=== PATIENT | female | born 1950 | race Caucasian/White ===

== ENCOUNTER 2021-09-07 10:07 | Inpatient (IN) | payer MEDICARE, SELFPAY ==
[2021-09-07] VITALS (39 sets, daily range): BP systolic 81–122; BP diastolic 47–83; PULSE 65–140; RESP 13–27; TEMP 36.3–36.9; O2SAT 92–99; BMI 26.3
--- NOTE | 2021-09-07 10:14 | DI.RAD.S_ITS ---
I wiPROCEDURE: XR CHEST 1V INDICATIONS: Chest pain TECHNIQUE: One view of the chest was acquired. COMPARISON: None. FINDINGS: Surgical changes and devices: None. Lungs and pleura: Lungs are clear. No pleural effusions or pneumothorax. Mediastinum: Mediastinal contours appear normal. Heart size is normal. Bones and chest wall: No suspicious bony lesions. Overlying soft tissues appear unremarkable. IMPRESSION: No acute cardiopulmonary process demonstrated radiographically. Dictated by: Maycol Jarrell M.D. on 09/07/2021 at 10:42 Approved by: Maycol Jarrell M.D. on 09/07/2021 at 10:43
--- NOTE | 2021-09-07 10:18 | ED.ARRPALP ---
HPI - Arrhythmia/Palpitations General Chief Complaint: Arrhythmia/Palpitations Stated Complaint: Heart racing- Congestive hf- sent by [facility] Time Seen by Provider: 09/07/21 10:16 Source: patient Mode of arrival: Ambulatory Limitations: no limitations History of Present Illness HPI narrative: Patient is a 71-year-old female who was sent from the walk-in clinic for evaluation of a fast heart rate. Patient does have a history of heart failure. States that her last echocardiogram was done within the past couple months. She states the ejection fraction was less than 40%. She is on 2 different medications for high blood pressure and also her heart failure. She takes her blood pressure on a daily basis every morning. She states that it normally runs in the 110s to 120s range over 80s to 90s. Her heart rate is normally in the 40s and 50s. She did take her normal medications last evening. She also took them this morning is normal. When she took her blood pressure this morning it was noted that her heart rate was in the 120s. She has no symptoms. No chest pain. No shortness of breath. No nausea vomiting. No lightheadedness. No headache. She is not on blood thinners. She is visiting the area taking care of a [id number]. Because of the elevated heart rate she went to the walk-in clinic and was sent to the emergency department for evaluation. Patient also states she has a history of left bundle-branch block Related Data Home Medications Medication Instructions Recorded Confirmed alendronate 70 mg tablet 70 mg PO QWEEK 09/07/21 09/07/21 aspirin 81 mg tablet 81 mg PO DAILY 09/07/21 09/07/21 atorvastatin 10 mg tablet 10 mg PO BEDTIME 09/07/21 09/07/21 carvedilol 12.5 mg tablet 12.5 mg PO BID 09/07/21 09/07/21 sacubitril 97 mg-valsartan 103 mg 1 tab PO BID 09/07/21 09/07/21 tablet (Entresto) Allergies Allergy/AdvReac Type Severity Reaction Status Date / Time No Known Drug Allergies Allergy Verified 09/07/21 10:14 Review of Systems Constitutional Constitutional: Reports as per HPI and Reports system reviewed and no additional complaints, except as documented Cardiovascular Cardiovascular: Reports as per HPI, Reports system reviewed and no additional complaints, except as documented, Denies chest pain, Denies syncope, Reports rapid heart rate, Denies irregular heart rhythm, Denies leg edema, Denies lightheadedness, Denies palpitations and Denies dyspnea Respiratory Respiratory: Denies cough and Denies dyspnea Gastrointestinal Gastrointestinal: Denies abdominal pain, Denies nausea and Denies vomiting Musculoskeletal Musculoskeletal: Reports system reviewed and no additional complaints, except as documented Integumentary/Breasts Skin/Breast: Reports system reviewed and no additional complaints, except as documented Neurologic Neurologic: Denies syncope Endocrine Endocrine: Denies palpitations Hematologic/Lymphatic On Anticoagulants: No Patient History Medical History Congestive heart failure Family History (Updated 09/07/21 @ 16:57 by Lily Gutierrez MD) Brother Heart transplant failure Mother FH: heart attack Social History household members: spouse and family Smoking Status: Never smoker alcohol intake: current Smoking Status: Never smoker alcohol intake frequency: 0-2 drinks per day Substance Use Type: does not use Exam Initial Vital Signs Initial Vital Signs: Vital Signs Pulse Rate 126 H 09/07/21 10:12 Respiratory Rate 21 09/07/21 10:12 Blood Pressure 122/83 09/07/21 10:12 Pulse Oximetry 92 09/07/21 10:12 Const General: cooperative and healthy appearing [facility] Head: normal to inspection and normocephalic Eyes General: appearance normal, both eyes and all related structures Neck Neck: normal visual inspection Chest Chest: normal inspection of the chest and No crepitus Resp Effort & Inspection: normal respiratory effort Auscultation: clear to auscultation bilaterally Cardio Rate: tachycardic Rhythm: regular rhythm GI Inspection: normal to inspection Skin General: no rashes or lesions noted Neuro General: patient alert, patient awake, patient oriented x3 and moves all extremities Extrem General: normal to inspection and capillary refill normal Psych Appearance: grossly normal Course Orders Ordered: ED Orders 09/07/21 10:11 EKG-12 Lead Stat 09/07/21 10:14 XR chest 1V Stat 09/07/21 10:15 Complete Blood Count AUTO DIFF Stat Comprehensive Metabolic Panel Stat Lipase Stat Magnesium Stat NT-proBNP (BNP-Adult 18+) Stat Partial Thromboplastin Time Stat Prothrombin Time INR Stat Troponin & CK Cardiac Panel Stat Acetaminophen (Acetaminophen 325 Mg Tablet) 650 mg PO Q6HR PRN PRN Reason: Fever/Mild Pain (1-3) Apixaban (Apixaban 5 Mg Tablet) 5 mg PO BID [place] Atorvastatin Calcium (Atorvastatin 20 Mg Tablet) 10 mg PO BEDTIME [place] Bisacodyl (Bisacodyl 10 Mg Supp) 10 mg [place] DAILY PRN PRN Reason: Constipation Docusate Sodium (Docusate 100 Mg Capsule) 100 mg PO BID [facility] Hydromorphone HCl (Hydromorphone 0.5 Mg Inj) 0.5 mg IV Q6H PRN PRN Reason: Pain, Moderate (4-6) Metoprolol Tartrate (Metoprolol Ir 50 Mg Tablet) 50 mg PO Q6H [facility] Last Admin: 09/07/21 14:55 Dose: 50 mg Documented by: BISHOP Naloxone HCl (Naloxone 0.4 Mg/Ml Vial) 0.2 mg IV Q2MIN PRN PRN Reason: Opiate Reversal Non-Formulary Medication (Non-Formulary Medication) 0 each PO PRN PRN PRN Reason: HOME MEDICATION STORAGE Ondansetron HCl (Ondansetron 4 Mg/2 Ml Inj) 4 mg IV Q8HR PRN PRN Reason: Nausea And Vomiting Discontinued Medications Diltiazem HCl (Diltiazem 5 Mg/Ml Sdv) 10 mg IV NOW ONE Stop: 09/07/21 16:31 Last Admin: 09/07/21 16:42 Dose: 10 mg Documented by: MEMO Sodium Chloride (Normal Saline 0.9%) 1,000 mls @ 500 mls/hr IV BOLUS ONE Stop: 09/07/21 13:45 Last Infusion: 09/07/21 14:48 Dose: 0 mls/hr Documented by: Infusion: 09/07/21 11:52 Dose: 0 mls/hr Documented by: Admin: 09/07/21 11:50 Dose: 500 mls/hr Documented by: LUDY Metoprolol Tartrate (Metoprolol Tartrate 5 Mg/5 Ml Inj) 5 mg IV NOW ONE Stop: 09/07/21 11:06 Last Admin: 09/07/21 11:12 Dose: 5 mg Documented by: LOUISE Vital Signs Vital signs: Vital Signs - 8 hr 09/07/21 10:12 09/07/21 10:15 09/07/21 10:30 Temperature 98.4 F Pulse Rate 126 H 126 H 127 H Respiratory Rate 21 21 17 Blood Pressure 122/83 122/83 98/68 Pulse Oximetry 92 98 97 09/07/21 11:00 09/07/21 11:13 09/07/21 11:25 Temperature Pulse Rate 135 H 99 H 123 H Respiratory Rate 20 20 15 Blood Pressure 109/74 109/75 93/67 Pulse Oximetry 97 96 98 09/07/21 11:30 09/07/21 11:52 09/07/21 12:00 Temperature Pulse Rate 123 H 124 H 125 H Respiratory Rate 17 18 18 Blood Pressure 86/61 L 104/72 111/70 Pulse Oximetry 98 97 98 09/07/21 12:15 Temperature Pulse Rate 125 H Respiratory Rate 18 Blood Pressure 95/56 L Pulse Oximetry 97 MDM - Arrhythmia/Palpitations Lab Data Attestation: I reviewed the patient's lab results. Result diagrams: 09/07/21 10:15 09/07/21 10:15 Labs: Lab Results 09/07/21 09/07/21 09/07/21 Range/Units 10:15 10:15 10:15 WBC 6.3 (4.5-11.0) X10^3/uL RBC 4.93 (4.0-5.2) X10^6/uL Hgb 15.5 (12.0-16.0) g/dL Hct 46.9 H (36-46) % MCV 95.2 (80-100) fL MCH 31.4 (26-34) PG MCHC 32.9 (30-36) % RDW 13.8 (11.6-14.8) % Plt Count 185 (150-400) X10^3/uL Neut % (Auto) 64.1 (50-75) % Lymph % (Auto) 24.8 L (25-40) % [place] % (Auto) 9.2 (3-14) % Eos % (Auto) 1.2 L (2-4) % Baso % (Auto) 0.7 (0-2) % Neut # (Auto) 4000 (2189-3375) /uL Lymph # (Auto) 1600 (3364-9995) /uL [place] # (Auto) 600 (0-900) /uL Eos # (Auto) 100 (0-450) /uL Baso # (Auto) 0 (0-100) /uL PT 11.6 (10.1-12.7) SECONDS INR 1.0 (0.9-1.3) APTT 32 (26.4-36.2) SECONDS Sodium 140 (137-145) mmol/L Potassium 4.4 (3.4-5.1) mmol/L Chloride 105 (98-107) mmol/L Carbon Dioxide 27 (22-32) mmol/L BUN 18 H (7-17) mg/dL Creatinine 0.59 (0.52-1.04) mg/dL Estimated GFR > 60.0 (>60) mL/min BUN/Creatinine Ratio 30.5 H (6-22) Glucose 116 H (80-110) mg/dL Calcium 9.4 (8.4-10.2) mg/dL Magnesium 1.9 (1.6-2.3) mg/dL Total Bilirubin 0.9 (0.2-1.3) mg/dL AST 28 (14-36) IU/L ALT 24 (<35) IU/L Alkaline Phosphatase 72 (38-126) U/L Total Creatine Kinase 64 (30-135) U/L CK-MB (CK-2) TNP CK-MB (CK-2) Rel Index TNP Troponin I 0.032 (0.01-0.034) ng/mL NT-Pro-B Natriuret Pep 1110 H (<125) pg/mL Total Protein 7.2 (6.3-8.2) g/dL Albumin 4.7 (3.5-5.0) g/dL Globulin 2.5 (1.7-4.1) g/dL Albumin/Globulin Ratio 1.9 (1.0-2.8) Lipase 91 (23-300) U/L 09/07/ Range/Units 10:15 WBC (4.5-11.0) X10^3/uL RBC (4.0-5.2) X10^6/uL Hgb (12.0-16.0) g/dL Hct (36-46) % MCV (80-100) fL MCH (26-34) PG MCHC (30-36) % RDW (11.6-14.8) % Plt Count (150-400) X10^3/uL Neut % (Auto) (50-75) % Lymph % (Auto) (25-40) % [place] % (Auto) (3-14) % Eos % (Auto) (2-4) % Baso % (Auto) (0-2) % Neut # (Auto) (2481-3605) /uL Lymph # (Auto) (7942-5225) /uL [place] # (Auto) (0-900) /uL Eos # (Auto) (0-450) /uL Baso # (Auto) (0-100) /uL PT (10.1-12.7) SECONDS INR (0.9-1.3) APTT (26.4-36.2) SECONDS Sodium (137-145) mmol/L Potassium (3.4-5.1) mmol/L Chloride (98-107) mmol/L Carbon Dioxide (22-32) mmol/L BUN (7-17) mg/dL Creatinine (0.52-1.04) mg/dL Estimated GFR (>60) mL/min BUN/Creatinine Ratio (6-22) Glucose (80-110) mg/dL Calcium (8.4-10.2) mg/dL Magnesium (1.6-2.3) mg/dL Total Bilirubin (0.2-1.3) mg/dL AST (14-36) IU/L ALT (<35) IU/L Alkaline Phosphatase (38-126) U/L Total Creatine Kinase (30-135) U/L CK-MB (CK-2) CK-MB (CK-2) Rel Index Troponin I (0.01-0.034) ng/mL NT-Pro-B Natriuret Pep Cancelled (<125) pg/mL Total Protein (6.3-8.2) g/dL Albumin (3.5-5.0) g/dL Globulin (1.7-4.1) g/dL Albumin/Globulin Ratio (1.0-2.8) Lipase (23-300) U/L Imaging Data Chest x-ray: Radiologist's Impresson: [address] [id number] ReportSigned Patient: Sonja Auguste JMR#: [id number]: 8Acct:[id number]/Sex: 71 / FDate of Service: 09/07/21Loc: EDAccession Number: [id number] Procedure: XR chest 1V Ordering Provider: Srinivas Hunt D.O., I wiPROCEDURE: XR CHEST 1V INDICATIONS: Chest pain TECHNIQUE: One view of the chest was acquired. COMPARISON: None. FINDINGS: Surgical changes and devices: None. Lungs and pleura: Lungs are clear. No pleural effusions or pneumothorax. Mediastinum: Mediastinal contours appear normal. Heart size is normal. Bones and chest wall: No suspicious bony lesions. Overlying soft tissues appear unremarkable. IMPRESSION: No acute cardiopulmonary process demonstrated radiographically. Dictated by: Maycol Jarrell M.D. on 09/07/2021 at 10:42 Approved by: Maycol Jarrell M.D. on 09/07/2021 at 10:43 ECG Data Attestation: I personally reviewed and interpreted this ECG as follows: Interpretation: Sinus rhythm Ventricular rate 122 Left axis deviation LVH QRS 1-0 milliseconds Normal QTC No ST T wave change Repeat EKG Sinus tachycardia Ventricular rate 123 Left axis deviation Nonspecific ST T wave changes MDM Narrative Medical decision making narrative: Patient is asymptomatic. No chest pain. No palpitations. Does have a history of heart failure. No prior notes available for review however she states that she has had a diagnosis of a left bundle branch block in the past and also states that her ejection fraction on a echocardiogram prior to her traveling to the local area was less than 40%. She also mentioned that her puddler helper thought that she potentially will need a ?defibrillator ?in the future although she states she has never been diagnosed with any abnormal arrhythmias. I did discuss the case with Dr. Bunn on-call for cardiology. He recommended giving the patient adenosine to see if we can see the underlying rhythm. I initially tried to speed up the EKG in we were unfortunately unable to distinguish whether not this was a sinus rhythm verses atrial flutter. Patient was given 6 mg of adenosine. We were able to then see that her underlying rhythm was atrial flutter. Per Cardiology recommendations we will hold her carvedilol. Start her on metoprolol. Will avoid Cardizem. I did discuss this all with the patient. Will admit for further evaluation and treatment. Discussed the case with Dr. bowel with internal medicine. Will admit for further evaluation treatment. Discharge Plan Departure Patient Disposition: Admitted As Inpatient Clinical Impression: Atrial flutter Admit Date/Time: 09/07/21 12:20 Admit Provider: Lily Gutierrez
[2021-09-07 10:21] LABS: Add Manual Diff / Slide Review NO; Basophils Absolute Auto 0 /uL (0-100); Basophils Percent Auto 0.7 % (0-2); Eosinophils Absolute Auto 100 /uL (0-450); Eosinophils Percent Auto 1.2 % (2-4); Hematocrit 46.9 % (36-46); Hemoglobin 15.5 g/dL (12.0-16.0); Lymphocytes Absolute Auto 1600 /uL (1100-4500); Lymphocytes Percent Auto 24.8 % (25-40); Mean Corpuscular HGB Conc 32.9 % (30-36); Mean Corpuscular Hemoglobin 31.4 PG (26-34); Mean Corpuscular Volume 95.2 fL (80-100); Monocytes Absolute Auto 600 /uL (0-900); Monocytes Percent Auto 9.2 % (3-14); Neutrophils Absolute Auto 4000 /uL (1500-7000); Neutrophils Percent Auto 64.1 % (50-75); Platelet Count 185 X10^3/uL (150-400); Red Blood Cell Count 4.93 X10^6/uL (4.0-5.2); Red Cell Distribution Width 13.8 % (11.6-14.8); White Blood Cell Count 6.3 X10^3/uL (4.5-11.0)
--- NOTE | 2021-09-07 10:22 | PC.NURSE ---
Pt reports every morning upon waking she takes her vitals. H/O CHF and takes Entresto and Carvedilol daily. States at midnight last night she woke in a sweat. This morning her BP was WNL however HR was 127. States she is usually bradycardic. Asymptomatic. Denies CP or SOB at this time and 99% RA. EKG obtained and IV access obtained and labs sent.
[2021-09-07 10:27] LABS: Prothrombin Time 11.6 SECONDS (10.1-12.7)
[2021-09-07 10:30] LABS: PTT Partial Thromboplastin Tim 32 SECONDS (26.4-36.2)
[2021-09-07 10:31] LABS: Alanine Aminotransferase 24 IU/L (<35); Albumin 4.7 g/dL (3.5-5.0); Albumin Globulin Ratio 1.9 (1.0-2.8); Alkaline Phosphatase 72 U/L (38-126); Aspartate Aminotransferase 28 IU/L (14-36); BUN Creatinine Ratio 30.5 (6-22); Bilirubin Total 0.9 mg/dL (0.2-1.3); Blood Urea Nitrogen 18 mg/dL (7-17); Calcium 9.4 mg/dL (8.4-10.2); Carbon Dioxide 27 mmol/L (22-32); Chloride 105 mmol/L (98-107); Creatine Kinase 64 U/L (30-135); Estimated Glomerular Filt Rate > 60.0 mL/min (>60); Globulin 2.5 g/dL (1.7-4.1); Glucose 116 mg/dL (80-110); HEMOLYSIS < 15 (0-50); Lipase 91 U/L (23-300); Magnesium 1.9 mg/dL (1.6-2.3); Potassium 4.4 mmol/L (3.4-5.1); Sodium 140 mmol/L (137-145); Total Protein 7.2 g/dL (6.3-8.2)
[2021-09-07 10:43] LABS: NT-proBNP (BNP-Adult 18+) 1110 pg/mL (<125); Troponin I 0.032 ng/mL (0.01-0.034)
[2021-09-07] MEDS: ADENOSINE 6 MG/2 ML VIAL IV (11:00)
[2021-09-07] MEDS: METOPROLOL TARTRATE 5 MG/5 ML INJ IV (11:12)
--- NOTE | 2021-09-07 11:16 | PC.NURSE ---
Pt attached to continuous EKG monitoring. Dr Hunt in room. Pt HR 128, regular narrow complex tach. Per Dr Tse, cardio--give 6mg adenosine to assess underlying rhythm. Given. Pt tolerated well. Underlying rhythm appears to be Aflutter. HR returned to 120's. BP 109/75. 5mg Metoprolol given IVP and will continue to assess. Pt continues to deny CP, SOB. OOB to BR with steady gait.
[2021-09-07] MEDS: SODIUM CHLORIDE 0.9% 1,000 ML 500 ML IV (11:50)
--- NOTE | 2021-09-07 13:26 | PC.NURSE ---
Pt monitor alarming. Pt with HR 145-50's appearing regular on monitor, irregular to palp. Pt asymptomatic and states she does not feel any different than she did on arrival. RT called for repeat EKG and Dr Hunt made aware of situation. No new orders at this time.
--- NOTE | 2021-09-07 13:28 | PC.NURSE ---
Report given to Gayla PUGA
[2021-09-07 14:37] LABS: COVID19 - ADMIT (NP swab/PCR) Negative (Negative)
--- NOTE | 2021-09-07 14:41 | DI.ECHO.S_ITS ---
[facility]---------+ [facility] +---------+ : : [address] : [address] : : : : [id number] : : : : Phone: [phone] Echocardiogram Report + + :Name: DINORAH ROSS Study Date: 09/08/2021 Height: 62 in : :[facility] ReadingLocation: Weight: 142 lb: : Gender: Female BSA: 1.7 m2 : :: 1950 Age: 71 yrs BP: 89/60 mmHg: :Reason For Study: New onset atrial flutter : : Performed By: CURTIS GATES : :Referring: MAIRA BLANK : + + Interpretation Summary The left ventricle is mildly dilated. The ejection fraction is estimated to be 20-25%. There is severe global hypokinesis of the left ventricle. The left atrium is moderately dilated. The mitral regurgitant jet is eccentrically directed. There is mild to moderate mitral regurgitation. There is mild tricuspid regurgitation. The right ventricular systolic pressure is estimated to be at least 17 mmHg based on an estimated right atrial pressure of 3 mm Hg. Procedure: A two-dimensional transthoracic echocardiogram with color flow and Doppler was performed. The study quality was technically adequate. There is no prior echocardiogram noted for this patient. The patient was in atrial flutter with heart rates between 71 - 125 bpm during the exam. Left Ventricle: The left ventricle is mildly dilated. There is normal left ventricular wall thickness. The ejection fraction is estimated to be 20-25%. There is severe global hypokinesis of the left ventricle. Diastolic function could not be accurately assessed due to unobtainable data. Right Ventricle: The right ventricle is normal size. Right ventricular systolic function is mild to moderately reduced. Atria: The left atrium is moderately dilated. The right atrium is mildly dilated. There is no Doppler evidence for an interatrial shunt. Mitral Valve: There is a flat closure plane of the the mitral valve leaflets. The mitral valve leaflets appear borderline thickened, but open well. The mitral regurgitant jet is eccentrically directed. There is mild to moderate mitral regurgitation. The mitral regurgitant jet is posteriorly directed, which is consistent with anterior leaflet pathology. Aortic Valve: The aortic valve is trileaflet. The aortic valve opens well. No aortic regurgitation is present. Tricuspid Valve: The tricuspid valve is normal. There is mild tricuspid regurgitation. The right ventricular systolic pressure is estimated to be at least 17 mmHg based on an estimated right atrial pressure of 3 mm Hg. Pulmonic Valve: The pulmonic valve leaflets are thin and pliable; valve motion is normal. There is a trace or physiologic amount of pulmonic regurgitation. Great Vessels: The aortic root is normal size. The ascending aorta is normal in size. The aortic arch is normal in size. The IVC is of normal diameter and collapses greater than 50% with a sniff. This suggests a low right atrial pressure of 3 mm Hg. Pericardium/ Pleura There is no pericardial effusion. There is an anterior echo-free space consistent with a fat pad. There is no pleural effusion. MMode/2D Measurements & Calculations LVIDd: 5.2 cm LVOT diam: 1.8 cm LVIDs: 4.9 cm Ao root diam: 2.4 cm FS: 5.2 % asc Aorta Diam: 2.8 cm IVSd: 0.74 cm Ao Arch Diam (Prox Trans): 3.0 cm LVPWd: 0.70 cm LV ortiz. diameter/BSA (cm/m^2): 3.2 LV sys. diameter/BSA (cm/m^2): 3.0 LA A2 area: 22.4 cm2 RA long axis: 4.4 cm LA A4 area: 22.3 cm2 RA area: 13.5 cm2 LA length (vol): 5.9 cm RA vol: 35.6 ml LA vol: 71.7 ml RA : 21.6 ml/m2 LA vol index: 43.4 ml/m2 RVD1 (basal): 3.1 cm TAPSE: 1.2 cm Doppler Measurements & Calculations Ao V2 max: 102.3 cm/sec LVOT Max Kamari: 66.6 cm/sec Ao V2 mean: 74.6 cm/sec LV V1 max P.8 mmHg Ao max P.2 mmHg LV V1 VTI: 11.3 cm Ao mean P.4 mmHg KEVIN(I,D): 1.7 cm2 Ao V2 VTI: 16.8 cm KEVIN(V,D): 1.6 cm2 sev ratio: 0.67 KEVIN indexed to BSA (cm^2/m^2): 1.0 MV E max kamari: 58.6 cm/sec TR max kamari: 185.0 cm/sec MV dec time: 0.12 sec TR max P.7 mmHg PA V2 max: 65.4 cm/sec PA V2 mean: 46.8 cm/sec PA mean P.94 mmHg SV(LVOT): 28.0 ml Reading Physician:09:37 AM
--- NOTE | 2021-09-07 14:41 | PC.NURSE ---
admisssion completed and pt remains anxious r/t elevated hr ( 125-138 ) afib/flutter but otherwise asymptomatic- room air spo2 96% - urianted prior to getting in bed, lungs clear and plan is for po metoprolol awaiting orders at present- oriented to room, call light and bed controls
[2021-09-07] MEDS: METOPROLOL IR 50 MG TABLET PO ×2 (14:55→20:14)
[2021-09-07] MEDS: dilTIAZem 5 MG/ML SDV 10 MG IV (16:42)
--- NOTE | 2021-09-07 16:54 | P.HP_ITS ---
History of Present Illness History of Present Illness Date Patient Seen: 09/07/21 Chief complaint: Heart racing- Congestive hf- sent by [facility] Narrative: The patient is a 71-year-old female with a history of chronic systolic heart failure with an ejection fraction of 25-30%, osteoporosis, and hyperlipidemia who was in her usual state of health until earlier today. The patient takes her blood pressure daily. She also takes her pulse as well. She has no history of tachyarrhythmias. When she took her pulse and blood pressure this morning she noted her heart rate was 120. As that persisted she presented to the emergency room for evaluation. Patient denies any associated chest pain. She had no shortness of breath. She denies any orthopnea. She has no lower extremity edema. In fact the patient's heart failure was diagnosed via echo as she was clinically asymptomatic. As her ejection fraction 25% scheduled to have a defibrillator placed in February of this year. Patient lives in [place]. She is here in [place] to assist with her [id number] as a result of her father in [place] passing away a few months ago. The patient takes carvedilol and Entresto for her heart failure. She did take her usual medication this morning. In the emergency department she was given 5 mg of IV metoprolol however her heart rate remained elevated. After consultation with Cardiology, Dr. Bunn was recommended that the patient be admitted to the hospital, switched from carvedilol to metoprolol and anticoagulated for her atrial flutter. In the emergency room she was given 6 mg of adenosine. This clearly identified flutter waves. As the patient remains tachycardic she is admitted to the hospital for inpatient treatment of atrial flutter. Patient History Medical History Congestive heart failure Family & Social History Family History (Updated 09/07/21 @ 16:57 by Lily Gutierrez MD) Brother Heart transplant failure Mother FH: heart attack Social History: household members spouse,family Prior Living Arrangements House Safety & Behavioral: Feels Safe in Current Yes Environment Been Physically Hurt or No Threatened By a Person Suicidal Ideation Description None Suicide Plan Description No Plan Tobacco & Substance use: Smoking Status Never smoker alcohol intake current alcohol intake frequency 0-2 drinks per day Substance Use Type does not use Meds Home Medications and Allergies Home Medications Medication Instructions Recorded Confirmed Type alendronate 70 mg tablet 70 mg PO QWEEK 09/07/21 09/07/21 History aspirin 81 mg tablet 81 mg PO DAILY 09/07/21 09/07/21 History atorvastatin 10 mg tablet 10 mg PO BEDTIME 09/07/21 09/07/21 History carvedilol 12.5 mg tablet 12.5 mg PO BID 09/07/21 09/07/21 History sacubitril 97 mg-valsartan 103 mg 1 tab PO BID 09/07/21 09/07/21 History tablet (Entresto) Allergies Allergy/AdvReac Type Severity Reaction Status Date / Time No Known Drug Allergies Allergy Verified 09/07/21 10:14 Review of Systems Review of Systems Narrative: Ten point review of systems is negative Except as above Exam Vital Signs (past 8 hours): - 09/07/21 10:12 09/07/21 10:15 09/07/21 10:30 Temperature 98.4 F Pulse Rate 126 H 126 H 127 H Respiratory Rate 21 21 17 Blood Pressure 122/83 122/83 98/68 Pulse Oximetry 92 98 97 09/07/21 11:00 09/07/21 11:13 09/07/21 11:25 Temperature Pulse Rate 135 H 99 H 123 H Respiratory Rate 20 20 15 Blood Pressure 109/74 109/75 93/67 Pulse Oximetry 97 96 98 09/07/21 11:30 09/07/21 11:52 09/07/21 12:00 Temperature Pulse Rate 123 H 124 H 125 H Respiratory Rate 17 18 18 Blood Pressure 86/61 L 104/72 111/70 Pulse Oximetry 98 97 98 09/07/21 12:15 09/07/21 12:30 09/07/21 12:45 Temperature Pulse Rate 125 H 126 H 128 H Respiratory Rate 18 16 16 Blood Pressure 95/56 L 108/66 93/66 Pulse Oximetry 97 98 96 09/07/21 13:02 09/07/21 13:03 09/07/21 13:05 Temperature Pulse Rate 128 H 128 H 129 H Respiratory Rate 20 23 14 Blood Pressure 95/60 Pulse Oximetry 97 97 98 09/07/21 13:10 09/07/21 13:15 09/07/21 13:20 Temperature Pulse Rate 128 H 129 H 140 H Respiratory Rate 16 18 17 Blood Pressure 100/63 Pulse Oximetry 96 97 97 09/07/21 13:25 09/07/21 13:40 09/07/21 14:07 Temperature 97.4 F L 97.4 F L Pulse Rate 122 H 125 H Respiratory Rate 25 H 23 23 Blood Pressure 115/65 115/65 Pulse Oximetry 97 99 99 09/07/21 16:42 Temperature Pulse Rate 133 H Respiratory Rate Blood Pressure Pulse Oximetry Oxygen Delivery Method Room Air Oxygen Flow Rate 0 Narrative Exam Narrative: Pleasant female lying in bed in no obvious distress [facility] Other: HEENT: Normocephalic atraumatic, sclerae anicteric, extraocular muscles are intact, oropharynx is clear, neck is supple without adenopathy or thyromegaly Resp Other: Lungs: Clear to auscultation Cardio Other: Cardiac exam: Tachycardic, regular rate and rhythm normal S1-S2 GI Other: Abdomen: Soft and nontender Extrem Other: Extremities: No edema Psych Other: Patient is awake alert and appropriate, has no confusion, no delusions, no hallucination Objective ECG Impression: Atrial flutter Labs Result Diagrams: 09/07/21 10:15 09/07/21 10:15 Labs: Laboratory Results - last 24 hr 09/07/21 09/07/21 09/07/21 10:15 10:15 10:15 WBC 6.3 RBC 4.93 Hgb 15.5 Hct 46.9 H MCV 95.2 MCH 31.4 MCHC 32.9 RDW 13.8 Plt Count 185 Neut % (Auto) 64.1 Lymph % (Auto) 24.8 L [place] % (Auto) 9.2 Eos % (Auto) 1.2 L Baso % (Auto) 0.7 Neut # (Auto) 4000 Lymph # (Auto) 1600 [place] # (Auto) 600 Eos # (Auto) 100 Baso # (Auto) 0 PT 11.6 INR 1.0 APTT 32 Sodium 140 Potassium 4.4 Chloride 105 Carbon Dioxide 27 BUN 18 H Creatinine 0.59 Estimated GFR > 60.0 BUN/Creatinine Ratio 30.5 H Glucose 116 H Calcium 9.4 Magnesium 1.9 Total Bilirubin 0.9 AST 28 ALT 24 Alkaline Phosphatase 72 Total Creatine Kinase 64 CK-MB (CK-2) TNP CK-MB (CK-2) Rel Index TNP Troponin I 0.032 NT-Pro-B Natriuret Pep 1110 H Total Protein 7.2 Albumin 4.7 Globulin 2.5 Albumin/Globulin Ratio 1.9 Lipase 91 Nasal Screen MRSA (PCR) SARS-CoV-2 (PCR) 09/07/21 09/07/21 09/07/21 10:15 13:25 14:00 WBC RBC Hgb Hct MCV MCH MCHC RDW Plt Count Neut % (Auto) Lymph % (Auto) [place] % (Auto) Eos % (Auto) Baso % (Auto) Neut # (Auto) Lymph # (Auto) [place] # (Auto) Eos # (Auto) Baso # (Auto) PT INR APTT Sodium Potassium Chloride Carbon Dioxide BUN Creatinine Estimated GFR BUN/Creatinine Ratio Glucose Calcium Magnesium Total Bilirubin AST ALT Alkaline Phosphatase Total Creatine Kinase CK-MB (CK-2) CK-MB (CK-2) Rel Index Troponin I NT-Pro-B Natriuret Pep Cancelled Total Protein Albumin Globulin Albumin/Globulin Ratio Lipase Nasal Screen MRSA (PCR) Negative for mrsa SARS-CoV-2 (PCR) Negative Assessment & Plan Assessment & Plan narrative: Impression 1. 71-year-old female with a history of chronic systolic heart failure, known ejection fraction of 25-30% typically treated with carvedilol and Entresto admitted to the hospital with abrupt onset atrial flutter -the patient received 1 dose of metoprolol in the emergency room without incident -she remains tachycardic, she did take her Coreg this morning -patient was given 50 mg of oral metoprolol and remained tachycardic -she received 1 dose of IV Cardizem with heart rate 120-41 -patient currently asymptomatic -no evidence of heart failure -will obtain cardiac echo -resume metoprolol once heart rate is greater than 90 -patient will be started on Eliquis -anticipate discharge home tomorrow if heart rate remains well controlled Patient reports she is a full code will note that her record Her is her surrogate decision maker I have used all available means and resources to identify, verify and document her current medications Time Spent With Patient Critical Care time: I spent a total of [] minutes of critical care time on this patient's care today; this time is exclusive of procedural time.
--- NOTE | 2021-09-07 17:01 | PC.NURSE ---
Addendum entered by Radha Pittman R.N. 09/07/21 19:02: 1900- BP 85/55, MAP 63. Patient is asymptomatic. Dr. Gutierrez updated, received order for 250ml bolus once. Report given to osmani PUGA. Addendum entered by Radha Pittman R.N. 09/07/21 18:55: 1730- Patient's HR in 50-60s, afib 1830- Patient's HR ranging from 80-100, afib Original Note: 1630- Pt Hr in 130's Afib 1.5hrs after 50mg PO metoprolol given by jeffrey PUGA. Updated Dr. Gutierrez, received order for 10mg diltiazem bolus now 1700- Diltiazem given as ordered over 2mins per policy. Patient's HR decreased to low 40's, patient is asymptomatic and reports that a HR or 40-50s is normal for her. Dr. Gutierrez notified of change in HR. Instructed not to give any additional metoprolol if HR is under 90 bpm.
[2021-09-07] MEDS: ATORVASTATIN 20 MG TABLET 10 MG PO (20:13)
[2021-09-07] MEDS: DOCUSATE 100 MG CAPSULE PO (20:14)
[2021-09-07 20:23] LABS: TSH w/ Reflex to FT4 2.29 uIU/mL (0.47-4.68)
[2021-09-07] MEDS: APIXABAN 5 MG TABLET PO (21:25)
[2021-09-07] MEDS: AMIODARONE 360 MG/200 ML PIGGYBACK 33.333 MG IV (23:06)
[2021-09-08] VITALS (25 sets, daily range): BP systolic 89–115; BP diastolic 55–76; PULSE 81–115; RESP 15–34; TEMP 36.3–36.9; O2SAT 94–97; BMI 25.9
--- NOTE | 2021-09-08 03:04 | P.TELICUCN_ITS ---
History of Present Illness Consult details Date Patient Seen: 09/08/21 Chief complaint: Heart racing- Congestive hf- sent by [facility] Reason for consult: atrial flutter pt started on amio drip Requesting provider: Lily Gutierrez :: This patient was seen via real time interactive two-way audiovisual telecommunication. [facility] Medical History Congestive heart failure Family History (Updated 09/07/21 @ 16:57 by Lily Gutierrez MD) Brother Heart transplant failure Mother FH: heart attack Social History household members: spouse and family Smoking Status: Never smoker alcohol intake: current Current Medications Current Medications Medications: Home Medications alendronate 70 mg tablet 70 mg PO QWEEK 09/07/21 [History Confirmed 09/07/21] aspirin 81 mg tablet 81 mg PO DAILY 09/07/21 [History Confirmed 09/07/21] atorvastatin 10 mg tablet 10 mg PO BEDTIME 09/07/21 [History Confirmed 09/07/21] carvedilol 12.5 mg tablet 12.5 mg PO BID 09/07/21 [History Confirmed 09/07/21] sacubitril 97 mg-valsartan 103 mg tablet (Entresto) 1 tab PO BID 09/07/21 [History Confirmed 09/07/21] Visit Medications (administered) Generic Name Dose Route Start Last Admin Trade Name Freq PRN Reason Stop Dose Admin Apixaban 5 mg 09/07/21 21:00 09/07/21 21:25 Apixaban 5 Mg Tablet PO 5 mg BID LORNE Administration Atorvastatin Calcium 10 mg 09/07/21 21:00 09/07/21 20:13 Atorvastatin 20 Mg Tablet PO 10 mg BEDTIME LORNE Administration Docusate Sodium 100 mg 09/07/21 21:00 09/07/21 20:14 Docusate 100 Mg Capsule PO 100 mg BID LORNE Administration Amiodarone HCl/Dextrose 360 mg in 200 mls @ 33.333 mls/hr 09/07/21 22:38 09/07/21 23:06 Nexterone IV 09/08/21 04:37 1 mg/min NOW ONE 33.333 mls/hr Administration Protocol Metoprolol Tartrate 50 mg 09/07/21 15:00 09/07/21 20:14 Metoprolol Ir 50 Mg Tablet PO 50 mg Q6H LORNE Administration Exam Vital Signs (past 8 hours): - 09/07/21 19:09 09/07/21 20:05 09/07/21 20:35 Temperature 98.2 F Pulse Rate 93 H Respiratory Rate 18 Blood Pressure 85/55 L 100/67 Pulse Oximetry 97 97 09/07/21 22:12 09/07/21 22:55 Temperature 98.1 F Pulse Rate 133 H Respiratory Rate 20 Blood Pressure 92/55 L Pulse Oximetry 97 97 Oxygen Delivery Method Room Air Oxygen Flow Rate 0 Objective Labs Result Diagrams: 09/07/21 10:15 09/07/21 10:15 Labs: Laboratory Results - last 24 hr 09/07/21 09/07/21 09/07/21 10:15 10:15 10:15 WBC 6.3 RBC 4.93 Hgb 15.5 Hct 46.9 H MCV 95.2 MCH 31.4 MCHC 32.9 RDW 13.8 Plt Count 185 Neut % (Auto) 64.1 Lymph % (Auto) 24.8 L [place] % (Auto) 9.2 Eos % (Auto) 1.2 L Baso % (Auto) 0.7 Neut # (Auto) 4000 Lymph # (Auto) 1600 [place] # (Auto) 600 Eos # (Auto) 100 Baso # (Auto) 0 PT 11.6 INR 1.0 APTT 32 Sodium 140 Potassium 4.4 Chloride 105 Carbon Dioxide 27 BUN 18 H Creatinine 0.59 Estimated GFR > 60.0 BUN/Creatinine Ratio 30.5 H Glucose 116 H Calcium 9.4 Magnesium 1.9 Total Bilirubin 0.9 AST 28 ALT 24 Alkaline Phosphatase 72 Total Creatine Kinase 64 CK-MB (CK-2) TNP CK-MB (CK-2) Rel Index TNP Troponin I 0.032 NT-Pro-B Natriuret Pep 1110 H Total Protein 7.2 Albumin 4.7 Globulin 2.5 Albumin/Globulin Ratio 1.9 Lipase 91 TSH Nasal Screen MRSA (PCR) SARS-CoV-2 (PCR) 09/07/21 09/07/21 09/07/21 10:15 10:15 13:25 WBC RBC Hgb Hct MCV MCH MCHC RDW Plt Count Neut % (Auto) Lymph % (Auto) [place] % (Auto) Eos % (Auto) Baso % (Auto) Neut # (Auto) Lymph # (Auto) [place] # (Auto) Eos # (Auto) Baso # (Auto) PT INR APTT Sodium Potassium Chloride Carbon Dioxide BUN Creatinine Estimated GFR BUN/Creatinine Ratio Glucose Calcium Magnesium Total Bilirubin AST ALT Alkaline Phosphatase Total Creatine Kinase CK-MB (CK-2) CK-MB (CK-2) Rel Index Troponin I NT-Pro-B Natriuret Pep Cancelled Total Protein Albumin Globulin Albumin/Globulin Ratio Lipase TSH 2.29 Nasal Screen MRSA (PCR) SARS-CoV-2 (PCR) Negative 09/07/21 14:00 WBC RBC Hgb Hct MCV MCH MCHC RDW Plt Count Neut % (Auto) Lymph % (Auto) [place] % (Auto) Eos % (Auto) Baso % (Auto) Neut # (Auto) Lymph # (Auto) [place] # (Auto) Eos # (Auto) Baso # (Auto) PT INR APTT Sodium Potassium Chloride Carbon Dioxide BUN Creatinine Estimated GFR BUN/Creatinine Ratio Glucose Calcium Magnesium Total Bilirubin AST ALT Alkaline Phosphatase Total Creatine Kinase CK-MB (CK-2) CK-MB (CK-2) Rel Index Troponin I NT-Pro-B Natriuret Pep Total Protein Albumin Globulin Albumin/Globulin Ratio Lipase TSH Nasal Screen MRSA (PCR) Negative for mrsa SARS-CoV-2 (PCR) Assessment & Plan Assessment & Plan narrative: 72 year old female with PMHx of CHF with EF of 25% presented with palpitations found to have aflutter. intitially treated with lopressor and cardizem however bp was borderline adn pt was started on amio drip. does not appear to be in heart failure or having active cardiac ischemia or an infectious process afebrile, HD stable, mental status intact cxr show no acute process suggest -cont amio drip -replace electorlytes, can give extra mag sulfate to control HR -cont apixaban -check serial ekg/trop -check echo -check UA -cardio eval -please call TeleICU with any acute issues Time Spent With Patient Critical Care time: I spent a total of [] minutes of critical care time on this patient's care today; this time is exclusive of procedural time.
[2021-09-08] MEDS: AMIODARONE 360 MG/200 ML PIGGYBACK 16.667 MG IV ×2 (04:30→15:59)
[2021-09-08] MEDS: METOPROLOL IR 50 MG TABLET PO ×3 (08:40→20:32)
[2021-09-08] MEDS: APIXABAN 5 MG TABLET PO ×2 (08:40→20:28)
--- NOTE | 2021-09-08 08:52 | PM.PN.EICU ---
Subjective Subjective :: This patient was seen via real time interactive two-way audiovisual telecommunication. No acute issues overnight. HR ~90s-120. On amiodarone infusion and metoprolol 50 mg q6hr. No complaints. Scheduled to complete amiodarone infusion therapy at 10:30 pm. Current Medications Current Medications Medications: Home Medications alendronate 70 mg tablet 70 mg PO QWEEK 09/07/21 [History Confirmed 09/07/21] aspirin 81 mg tablet 81 mg PO DAILY 09/07/21 [History Confirmed 09/07/21] atorvastatin 10 mg tablet 10 mg PO BEDTIME 09/07/21 [History Confirmed 09/07/21] carvedilol 12.5 mg tablet 12.5 mg PO BID 09/07/21 [History Confirmed 09/07/21] sacubitril 97 mg-valsartan 103 mg tablet (Entresto) 1 tab PO BID 09/07/21 [History Confirmed 09/07/21] Visit Medications (administered) Generic Name Dose Route Start Last Admin Trade Name Joeq PRN Reason Stop Dose Admin Apixaban 5 mg 09/07/21 21:00 09/08/21 08:40 Apixaban 5 Mg Tablet PO 5 mg BID LORNE Administration Atorvastatin Calcium 10 mg 09/07/21 21:00 09/07/21 20:13 Atorvastatin 20 Mg Tablet PO 10 mg BEDTIME LORNE Administration Docusate Sodium 100 mg 09/07/21 21:00 09/08/21 08:41 Docusate 100 Mg Capsule PO Not Given BID LORNE Amiodarone HCl/Dextrose 360 mg in 200 mls @ 16.7 mls/hr 09/08/21 04:30 09/08/21 04:30 Nexterone IV 09/08/21 16:29 0.5 mg/min CONT LORNE 16.667 mls/hr Administration Protocol Metoprolol Tartrate 50 mg 09/07/21 15:00 09/08/21 08:40 Metoprolol Ir 50 Mg Tablet PO 50 mg Q6H LORNE Administration Objective Labs Result Diagrams: 09/07/21 10:15 09/08/21 08:45 Labs: Laboratory Results - last 24 hr 09/07/21 09/07/21 09/07/21 10:15 10:15 10:15 WBC 6.3 RBC 4.93 Hgb 15.5 Hct 46.9 H MCV 95.2 MCH 31.4 MCHC 32.9 RDW 13.8 Plt Count 185 Neut % (Auto) 64.1 Lymph % (Auto) 24.8 L [place] % (Auto) 9.2 Eos % (Auto) 1.2 L Baso % (Auto) 0.7 Neut # (Auto) 4000 Lymph # (Auto) 1600 [place] # (Auto) 600 Eos # (Auto) 100 Baso # (Auto) 0 PT 11.6 INR 1.0 APTT 32 Sodium 140 Potassium 4.4 Chloride 105 Carbon Dioxide 27 BUN 18 H Creatinine 0.59 Estimated GFR > 60.0 BUN/Creatinine Ratio 30.5 H Glucose 116 H Calcium 9.4 Magnesium 1.9 Total Bilirubin 0.9 AST 28 ALT 24 Alkaline Phosphatase 72 Total Creatine Kinase 64 CK-MB (CK-2) TNP CK-MB (CK-2) Rel Index TNP Troponin I 0.032 NT-Pro-B Natriuret Pep 1110 H Total Protein 7.2 Albumin 4.7 Globulin 2.5 Albumin/Globulin Ratio 1.9 Lipase 91 TSH Nasal Screen MRSA (PCR) SARS-CoV-2 (PCR) 09/07/21 09/07/21 09/07/21 10:15 10:15 13:25 WBC RBC Hgb Hct MCV MCH MCHC RDW Plt Count Neut % (Auto) Lymph % (Auto) [place] % (Auto) Eos % (Auto) Baso % (Auto) Neut # (Auto) Lymph # (Auto) [place] # (Auto) Eos # (Auto) Baso # (Auto) PT INR APTT Sodium Potassium Chloride Carbon Dioxide BUN Creatinine Estimated GFR BUN/Creatinine Ratio Glucose Calcium Magnesium Total Bilirubin AST ALT Alkaline Phosphatase Total Creatine Kinase CK-MB (CK-2) CK-MB (CK-2) Rel Index Troponin I NT-Pro-B Natriuret Pep Cancelled Total Protein Albumin Globulin Albumin/Globulin Ratio Lipase TSH 2.29 Nasal Screen MRSA (PCR) SARS-CoV-2 (PCR) Negative 09/07/21 14:00 WBC RBC Hgb Hct MCV MCH MCHC RDW Plt Count Neut % (Auto) Lymph % (Auto) [place] % (Auto) Eos % (Auto) Baso % (Auto) Neut # (Auto) Lymph # (Auto) [place] # (Auto) Eos # (Auto) Baso # (Auto) PT INR APTT Sodium Potassium Chloride Carbon Dioxide BUN Creatinine Estimated GFR BUN/Creatinine Ratio Glucose Calcium Magnesium Total Bilirubin AST ALT Alkaline Phosphatase Total Creatine Kinase CK-MB (CK-2) CK-MB (CK-2) Rel Index Troponin I NT-Pro-B Natriuret Pep Total Protein Albumin Globulin Albumin/Globulin Ratio Lipase TSH Nasal Screen MRSA (PCR) Negative for mrsa SARS-CoV-2 (PCR) Exam Vital Signs (past 8 hours): - 09/08/21 03:43 09/08/21 06:13 09/08/21 08:00 Temperature 98.0 F 97.8 F Pulse Rate 96 H 101 H Respiratory Rate 15 19 Blood Pressure 89/60 L 115/64 Pulse Oximetry 97 97 95 Oxygen Delivery Method Room Air Oxygen Flow Rate 0 Narrative Exam Narrative: Speaking in full sentence on camera. NAD. Assessment & Plan Assessment & Plan narrative: # Atrial fibrillation w/ RVR -- HR controlled with amiodarone infusion and metoprolol -- Pending TTE -- Cont amiodarone infusion per protocol until 10:30 pm -- CHADVASC score 2 -> on apixiban therapy -- Check Mg level -- High lytes goal (K>4, Mg >2, Phos > 3) -- If failed metoprolol and amiodarone then will start digoxin therapy -- Monitor on telemetry Time Spent With Patient Critical Care time: I spent a total of [] minutes of critical care time on this patient's care today; this time is exclusive of procedural time.
[2021-09-08 09:16] LABS: BUN Creatinine Ratio 28.3 (6-22); Blood Urea Nitrogen 17 mg/dL (7-17); Carbon Dioxide 26 mmol/L (22-32); Chloride 105 mmol/L (98-107); Estimated Glomerular Filt Rate > 60.0 mL/min (>60); Glucose 139 mg/dL (80-110); HEMOLYSIS 71 (0-50); Potassium 4.6 mmol/L (3.4-5.1); Sodium 138 mmol/L (137-145)
[2021-09-08] MEDS: VALSARTAN PO ×2 (10:25→20:28)
[2021-09-08] MEDS: SACUBITRIL PO ×2 (10:25→20:28)
--- NOTE | 2021-09-08 11:34 | PM.PN.1 ---
Subjective Subjective Date Patient Seen: 09/08/21 Interval history: The patient is a 71-year-old female with a history of chronic systolic heart failure who was admitted to the hospital yesterday for atrial flutter with a rapid ventricular response rate. She was started on metoprolol yesterday. However she remained tachycardic and subsequently became hypotensive. She was then started on an amiodarone drip. She had improvement of her heart rate. This morning her heart rate however was 120s. She was resumed on her metoprolol and so far her heart rate and blood pressure appears to be improved. She does not have any pain in her chest. She denies any shortness of breath. She does not have any sensation of palpitations Exam Vital Signs (past 8 hours): - 09/08/21 03:43 09/08/21 06:13 09/08/21 08:00 Temperature 98.0 F 97.8 F Pulse Rate 96 H 101 H Respiratory Rate 15 19 Blood Pressure 89/60 L 115/64 Pulse Oximetry 97 97 95 09/08/21 10:24 Temperature Pulse Rate 88 Respiratory Rate 16 Blood Pressure 97/55 L Pulse Oximetry 96 Oxygen Delivery Method Room Air Oxygen Flow Rate 0 Narrative Exam Narrative: Pleasant female lying in bed in no obvious distress Resp Other: Lungs clear to auscultation Cardio Other: Cardiac exam: Tachycardic regular rate and rhythm normal S1-S2 GI Other: Abdomen: Soft and nontender Extrem Other: Extremities: No edema Objective Labs Result Diagrams: 09/07/21 10:15 09/08/21 08:45 Labs: Laboratory Results - last 24 hr 09/07/21 09/07/21 09/07/21 10:15 13:25 14:00 Sodium Potassium Chloride Carbon Dioxide BUN Creatinine Estimated GFR BUN/Creatinine Ratio Glucose Calcium Magnesium TSH 2.29 Nasal Screen MRSA (PCR) Negative for mrsa SARS-CoV-2 (PCR) Negative 09/08/21 09/08/21 08:45 08:45 Sodium 138 Potassium 4.6 Chloride 105 Carbon Dioxide 26 BUN 17 Creatinine 0.60 Estimated GFR > 60.0 BUN/Creatinine Ratio 28.3 H Glucose 139 H Calcium 9.0 Magnesium 2.0 TSH Nasal Screen MRSA (PCR) SARS-CoV-2 (PCR) [facility] Medical History Congestive heart failure Family History (Updated 09/07/21 @ 16:57 by Lily Gutierrez MD) Brother Heart transplant failure Mother FH: heart attack Social History household members: spouse and family Smoking Status: Never smoker alcohol intake: current Assessment & Plan Assessment & Plan narrative: Impression 1. 71-year-old female admitted to the hospital with atrial flutter and rapid ventricular response rate -patient required IV Lopressor, oral metoprolol, now IV amiodarone for rate control. -she did receive 1 dose of IV Cardizem last evening and had associated hypotension as well as a heart rate of 41 -currently anticoagulated with Eliquis -her TSH is within normal limits -the patient will continue on metoprolol 50 q.6, in addition to the amiodarone, and Eliquis -should her heart rate remained controlled she will be discharged home on both amiodarone and metoprolol . -will arrange outpatient cardiology consultation as well. 2. Chronic systolic heart failure -patient will continue Entresto -carvedilol has been discontinued, as she is now on metoprolol -no evidence of acute heart failure at this time -echocardiogram The left ventricle is mildly dilated. The ejection fraction is estimated to be 20-25%. There is severe global hypokinesis of the left ventricle. The left atrium is moderately dilated. The mitral regurgitant jet is eccentrically directed. There is mild to moderate mitral regurgitation. There is mild tricuspid regurgitation. The right ventricular systolic pressure is estimated to be at least 17 mmHg based on an estimated right atrial pressure of 3 mm Hg. Patient was scheduled for a defibrillator for March 06 in [place]. For now will try to control rate as above, continue anticoagulation. If unable to control rate consider transfer for device therapy. Time Spent With Patient Critical Care time: I spent a total of [] minutes of critical care time on this patient's care today; this time is exclusive of procedural time.
--- NOTE | 2021-09-08 14:14 | CM.DANOTE ---
DC Assessment: Patient is a 71 yr old female who presented with afib. Cm Met with patient and her rosalio at the bedside. CM explained role patient stated understanding/ Patient was alert and oriented at time of CM visit and is independent with all ADLS and drives at baseline. Patient lives with her spouse in [place] in a single level home and currently taking care of her [id number]. lives most of the time in [place] and plans on returning there in january. I: Medicare and AARP P: DC home with spouse when medically stable currently has no DC needs but CM department will follow to help assist with any DC planning needs that may arise Jen Christie RN Discharge Planning/Care Management Advanced directive, confirm from FAMILY Start: 09/07/21 14:03 Freq: Q24H Status: Complete Protocol: Document 09/07/21 14:25 TJB (Rec: 09/07/21 14:25 TJB [id number]) Advance Directive, confirm on record Time 14:25 Person contacted pt/rosalio ( spouse) Copy received No CM Discharge Assessment Start: 09/08/21 14:12 Freq: Status: Active Protocol: Document 09/08/21 14:13 HS (Rec: 09/08/21 14:14 HS [id number]) Discharge Planning Assessment Assigned [facility] Rosalio Auguste () DPOA/Assigned Designee Name [phone] Advance Directives? Yes Advance Directives on File No History Provided By Patient,Significant Other Has Patient been admitted in last 30 No days? Prior Living Arrangements House Household Members spouse,family Type of transporation used prior to Drives own vehicle admit Independent with ADL's Yes Is patient alert and oriented? Yes Caregiver for Another Yes: helps with her mother in law Discharge Plan Home Referrals Initiated None needed Whiteboard Updated in Patient Room with Yes name and ext. # of [facility] Hand Review Status In Process Next Review Type Continued Stay Review
--- NOTE | 2021-09-08 19:49 | PC.NURSE ---
Addendum entered by Jannette Bunn R.N. 09/08/21 22:28: 1030 Amiodarone gtt d/c as ordered Original Note: Evening shift note: Pt A/Ox4 resting in bed with at bedside, remains in AFib CVR/RVR but asymptomatic, SpO2 97% on RA. Amiodarone infusing at 16.7ml/hr pharmacy notes the amiodarone gtt to be turned off at 2230 based on when the gtt was started. Bed low and locked, call light within reach, will continue to monitor.
--- NOTE | 2021-09-08 20:16 | PM.ICURNDS ---
- Date Patient Seen: 09/08/21 Time Patient Seen: 20:16 :: This patient was seen via real time interactive two-way audiovisual telecommunication. patient seen chart/labs/imaging reviewed Note: no acute issues throughout the day no chest pain no shortness of breath afebrile, HD stable heart rate controlled finishing amio drip, will transition to po ok for downgrade from ICU discussed with bedside nurse
[2021-09-08] MEDS: ATORVASTATIN 20 MG TABLET 10 MG PO (20:28)
[2021-09-08] MEDS: DOCUSATE 100 MG CAPSULE PO (20:28)
[2021-09-09] VITALS (14 sets, daily range): BP systolic 92–107; BP diastolic 55–72; PULSE 98–114; RESP 15–26; TEMP 36.1–36.6; O2SAT 95–98
[2021-09-09] MEDS: APIXABAN 5 MG TABLET PO ×2 (08:12→21:19)
[2021-09-09] MEDS: VALSARTAN PO ×2 (08:12→21:19)
[2021-09-09] MEDS: METOPROLOL IR 50 MG TABLET PO ×3 (08:12→21:26)
[2021-09-09] MEDS: SODIUM CHLORIDE 0.9% FLUSH 10 ML IV ×2 (08:12→21:45)
[2021-09-09] MEDS: AMIODARONE 200 MG TABLET PO (08:12)
[2021-09-09] MEDS: SACUBITRIL PO ×2 (08:12→21:19)
--- NOTE | 2021-09-09 14:04 | P.PN_ITS ---
Subjective Subjective Date Patient Seen: 09/09/21 Interval history: Patient was admitted for atrial flutter. She continues to have a rapid rate. She was started on an amiodarone drip and switched to po amio today. She continues on oral metoprolol 50 every six hours. her blood pressure has been soft, but she tolertates this. She is anticoagulated with Eliquis. She denies shortness of breath or chest pain Exam Vital Signs (past 8 hours): - 09/09/21 07:54 09/09/21 09:25 09/09/21 12:31 Temperature 97.8 F 97.5 F L Pulse Rate 114 H 112 H 113 H Respiratory Rate 18 15 Blood Pressure 92/65 106/61 107/72 Pulse Oximetry 97 98 Oxygen Delivery Method Room Air Oxygen Flow Rate 0 Narrative Exam Narrative: pleasant female sitting in bed in no acute distress Resp Other: Lungs: clear to ausculatation Cardio Other: Tachycardic Regular rate and rhythm Nl Sl S2 GI Other: abd: soft/ non tendern Extrem Other: no edema Objective Labs Result Diagrams: 09/07/21 10:15 09/08/21 08:45 [facility] Medical History Congestive heart failure Family History (Updated 09/07/21 @ 16:57 by Lily Gutierrez MD) Brother Heart transplant failure Mother FH: heart attack Social History household members: spouse and family Smoking Status: Never smoker alcohol intake: current Assessment & Plan Assessment & Plan narrative: 71-year-old female admitted to the hospital with atrial flutter and rapid ventricular response rate -patient required IV Lopressor, oral metoprolol, now IV amiodarone for rate control. -she did receive 1 dose of IV Cardizem last evening and had associated hypotension as well as a heart rate of 41 -currently anticoagulated with Eliquis -her TSH is within normal limits -the patient will continue on metoprolol 50 q.6, in addition to the amiodarone, and Eliquis -should her heart rate remained controlled she will be discharged home on both amiodarone and metoprolol . -Disscussed with Dr. Cabezas ( Cardiology), plans underway to transfer to [facility] for JAMAL and cardioversion-Bed available tomorrow -patient is aware. Will need to speak to Hospitalists to accept in the morning 2. Chronic systolic heart failure -patient will continue Entresto -carvedilol has been discontinued, as she is now on metoprolol -no evidence of acute heart failure at this time -echocardiogram The left ventricle is mildly dilated. The ejection fraction is estimated to be 20-25%. There is severe global hypokinesis of the left ventricle. The left atrium is moderately dilated. The mitral regurgitant jet is eccentrically directed. There is mild to moderate mitral regurgitation. There is mild tricuspid regurgitation. The right ventricular systolic pressure is estimated to be at least 17 mmHg based on an estimated right atrial pressure of 3 mm Hg. Patient was scheduled for a defibrillator for March 06 in [place]. For now will try to control rate as above, continue anticoagulation. If unable to control rate consider transfer for device therapy. Patient previously scheduled for ICD, she will likely need to get it soon, once she has been cardioverted for her atrial flutter Time Spent With Patient Critical Care time: I spent a total of [] minutes of critical care time on this patient's care today; this time is exclusive of procedural time.
[2021-09-09] MEDS: ATORVASTATIN 20 MG TABLET 10 MG PO (21:45)
[2021-09-10] VITALS (22 sets, daily range): BP systolic 86–119; BP diastolic 50–72; PULSE 77–133; RESP 17–27; TEMP 36.1–36.6; O2SAT 95–100
[2021-09-10 05:17] LABS: BUN Creatinine Ratio 26.8 (6-22); Blood Urea Nitrogen 19 mg/dL (7-17); Calcium 9.2 mg/dL (8.4-10.2); Carbon Dioxide 31 mmol/L (22-32); Chloride 105 mmol/L (98-107); Estimated Glomerular Filt Rate > 60.0 mL/min (>60); Glucose 97 mg/dL (80-110); HEMOLYSIS < 15 (0-50); Potassium 4.4 mmol/L (3.4-5.1); Sodium 140 mmol/L (137-145)
--- NOTE | 2021-09-10 06:17 | PC.NURSE ---
Shift Note-Patient slept throughout the night, remains in A-fib/flutter, rate 60s at rest, goes up to 120s while ambulating to BR, asymptomatic, BP 91/67 and 91/54, 0300 PO metoprolol held.
--- NOTE | 2021-09-10 08:48 | PC.NURSE ---
0730 Checked on Pt dasia 0730 upon completion of report. Pt respirations irregular and shallow, Pt very pale with bluish/white lips, and completely unresponsive. Observed Pt for a couple of minutes to assess for pain or discomfort. Pt appeared peaceful and without distress. 0750 Checked on Pt again with FAST FOOD SERVER to reposition and Pt was no longer breathing or responsive. Bathed Pt, applied lotion, lip balm, and changed her gown. Emptied catheter and prepared Pt for family. Notified lock fitter Erika for second pulse/breathing check. Notified Dr. Armenta and he checked on Pt as well and confirmed that he would contact her family.
[2021-09-10] MEDS: AMIODARONE 150 MG/3 ML VIAL 300 MG IV (09:54)
[2021-09-10] MEDS: METOPROLOL IR 50 MG TABLET PO (10:00)
[2021-09-10] MEDS: APIXABAN 5 MG TABLET PO ×2 (10:01→20:45)
[2021-09-10] MEDS: SODIUM CHLORIDE 0.9% FLUSH 10 ML IV ×2 (10:01→20:46)
[2021-09-10] MEDS: VALSARTAN PO ×2 (10:02→20:45)
[2021-09-10] MEDS: SACUBITRIL PO ×2 (10:02→20:45)
[2021-09-10] MEDS: AMIODARONE 360 MG/200 ML PIGGYBACK 33.333 MG IV (10:10)
--- NOTE | 2021-09-10 11:19 | P.PN_ITS ---
Subjective Subjective Date Patient Seen: 09/10/21 Time Patient Seen: 11:19 Interval history: 71 F admitted with atrial flutter. Overnight in NSR, back in atrial flutter this AM at a rate of 120s. Plan yesterday was for a JAMAL and cardioversion at [facility] today. However, this is not available according to Cardiology this morning. They instead recommended repeat amiodarone infusion. Exam Vital Signs (past 8 hours): - 09/10/21 04:41 09/10/21 07:30 09/10/21 08:00 Temperature 97.0 F L 97.8 F Pulse Rate 77 105 H Respiratory Rate 23 17 Blood Pressure 91/54 L 94/68 Pulse Oximetry 97 96 96 Oxygen Delivery Method Room Air Oxygen Flow Rate 0 Narrative Exam Narrative: GENERAL APPEARANCE: Well developed, well nourished, in no acute distress. SKIN: Inspection of the skin reveals no rashes, ulcerations or petechiae. HEENT: Normocephalic atraumatic, extraocular muscles are intact, oropharynx is clear and mucous membranes are moist, neck is supple without adenopathy NECK: Supple and symmetric. There was no thyroid enlargement, and no tenderness, or masses were felt. LUNGS: Auscultation of the lungs revealed no wheezes, rhonchi, or rales. CARDIOVASCULAR: Tachycardic, irregularly irregular, without murmurs, rubs, or gallops. Peripheral pulses were 2+ and symmetric. ABDOMEN: Soft and nontender with normal bowel sounds. No ascites was noted. MUSCULOSKELETAL: There was no tenderness or effusions noted. Muscle strength and tone were normal. EXTREMITIES: No cyanosis, clubbing or edema. NEUROLOGIC: Alert and oriented x 3. Normal affect. Strength is +5/5 in the Upper Extremities and Lower Extremities Bilaterally. Objective Labs Result Diagrams: 09/07/21 10:15 09/10/21 04:50 Labs: Laboratory Results - last 24 hr 09/10/21 04:50 Sodium 140 Potassium 4.4 Chloride 105 Carbon Dioxide 31 BUN 19 H Creatinine 0.71 Estimated GFR > 60.0 BUN/Creatinine Ratio 26.8 H Glucose 97 Calcium 9.2 [facility] Medical History Congestive heart failure Family History (Updated 09/07/21 @ 16:57 by Lily Gutierrez MD) Brother Heart transplant failure Mother FH: heart attack Social History household members: spouse and family Smoking Status: Never smoker alcohol intake: current Assessment & Plan Assessment & Plan narrative: 71-year-old female admitted to the hospital with atrial flutter and rapid ventricular response rate 1. atrial flutter with RVR -patient required IV Lopressor, oral metoprolol, completed IV amiodarone. Returned into RVR this AM. Cardiology had planned for JAMAL / cardioverson, but not available today. Recommended repeating IV amiodarone infusion today. -she did receive 1 dose of IV Cardizem last evening and had associated hypotension as well as a heart rate of 41 -currently anticoagulated with Eliquis -her TSH is within normal limits -the patient will continue on metoprolol 50 q.6, in addition to the amiodarone, and Eliquis -should her heart rate remained controlled she will be discharged home on both amiodarone and metoprolol. If not plan for JAMAL/cardioversion in the near future, however availability unclear. 2. Chronic systolic heart failure -patient will continue Entresto -carvedilol has been discontinued, as she is now on metoprolol -no evidence of acute heart failure at this time -echocardiogram showed EF 20-25%, near her previous studies per report. - Patient was scheduled for a defibrillator for March 06 in [place]. For now will try to control rate as above, continue anticoagulation. If unable to control rate consider transfer for device therapy. Patient previously scheduled for ICD, she will likely need to get it soon, once she has been cardioverted for her atrial flutter Code: Full Dispo: remains inpatient, monitor today if improvement in RVR with repeat amiodarone can discharge likely tomorrow vs reattempt for JAMAL/cardioversion if uncontrolled again. Time Spent With Patient Critical Care time: I spent a total of [] minutes of critical care time on this patient's care today; this time is exclusive of procedural time.
--- NOTE | 2021-09-10 12:27 | CM.DPC ---
DCP Cont: Discussed patient during team rounds. Patient has been in a-flutter, and hospitalist is working on getting her heart rate stable. They are working on rate control. Met with patient in her room, and spouse, Rosalio. Patient and have been staying here in [place] with his 95 year old mother, as his father in January. They have a condo in [facility], and a home in [place], which they are planning on going back to. They are up here in the summer months. Her provider is in [place]. P: DCP to continue to follow for any needs. Lorena Craig RN/Manager Of Care
[2021-09-10] MEDS: AMIODARONE 181 MG/100.56 ML PIGGYBACK 16.7 MG IV ×2 (16:11→22:41)
[2021-09-10] MEDS: DOCUSATE 100 MG CAPSULE PO (20:45)
[2021-09-10] MEDS: ATORVASTATIN 20 MG TABLET 10 MG PO (20:45)
--- NOTE | 2021-09-10 20:55 | P.TELICUPN_ITS ---
Subjective Subjective :: This patient was seen via real time interactive two-way audiovisual telecommunication. Patient was upgraded back to ICU status for reinitiation of IV amiodarone. Patient seen during nocturnal ICU multidisciplinary rounds. RN reports that NIBPs are somewhat soft. Current Medications Current Medications Medications: Home Medications alendronate 70 mg tablet 70 mg PO QWEEK 09/07/21 [History Confirmed 09/07/21] aspirin 81 mg tablet 81 mg PO DAILY 09/07/21 [History Confirmed 09/07/21] atorvastatin 10 mg tablet 10 mg PO BEDTIME 09/07/21 [History Confirmed 09/07/21] carvedilol 12.5 mg tablet 12.5 mg PO BID 09/07/21 [History Confirmed 09/07/21] sacubitril 97 mg-valsartan 103 mg tablet (Entresto) 1 tab PO BID 09/07/21 [History Confirmed 09/07/21] Visit Medications (administered) Generic Name Dose Route Start Last Admin Trade Name Freq PRN Reason Stop Dose Admin Apixaban 5 mg 09/07/21 21:00 09/10/21 20:45 Apixaban 5 Mg Tablet PO 5 mg BID LORNE Administration Atorvastatin Calcium 10 mg 09/07/21 21:00 09/10/21 20:45 Atorvastatin 20 Mg Tablet PO 10 mg BEDTIME LORNE Administration Docusate Sodium 100 mg 09/07/21 21:00 09/10/21 20:45 Docusate 100 Mg Capsule PO 100 mg BID LORNE Administration Amiodarone HCl/Dextrose 181 mg in 100.56 mls @ 16.7 mls/hr 09/10/21 16:00 09/10/21 16:11 Nexterone IV 09/11/21 10:00 16.7 ml/hr CONT LORNE 16.7 mls/hr Administration Protocol Metoprolol Tartrate 50 mg 09/07/21 15:00 09/10/21 20:45 Metoprolol Ir 50 Mg Tablet PO Not Given Q6H LORNE Sacubitril/Valsartan 1 each 09/08/21 10:00 09/10/21 20:45 (Entresto) 97/103mg PO 1 each BID LORNE Administration Sodium Chloride 10 ml 09/09/21 09:00 09/10/21 20:46 Sodium Chloride 0.9% Flush IV 10 ml BID LORNE Administration Objective Labs Result Diagrams: 09/07/21 10:15 09/10/21 04:50 Labs: Laboratory Results - last 24 hr 09/10/21 04:50 Sodium 140 Potassium 4.4 Chloride 105 Carbon Dioxide 31 BUN 19 H Creatinine 0.71 Estimated GFR > 60.0 BUN/Creatinine Ratio 26.8 H Glucose 97 Calcium 9.2 Exam Vital Signs (past 8 hours): - 09/10/21 13:02 09/10/21 14:00 09/10/21 15:00 Temperature Pulse Rate 80 81 81 Respiratory Rate 20 22 27 H Blood Pressure 119/69 97/56 L 86/61 L Pulse Oximetry 95 09/10/21 16:00 09/10/21 17:00 09/10/21 18:00 Temperature Pulse Rate 86 86 101 H Respiratory Rate 21 20 22 Blood Pressure 95/56 L 89/63 L 114/72 Pulse Oximetry 09/10/21 19:00 09/10/21 19:37 09/10/21 19:38 Temperature Pulse Rate 107 H 111 H 112 H Respiratory Rate 21 21 23 Blood Pressure 96/63 94/63 94/50 L Pulse Oximetry 100 09/10/21 19:39 09/10/21 20:00 Temperature 97.6 F Pulse Rate 110 H 113 H Respiratory Rate 17 22 Blood Pressure 94/50 L 90/53 L Pulse Oximetry 100 Oxygen Delivery Method Room Air Oxygen Flow Rate 0 Const General: comfortable and well groomed Resp Effort & Inspection: normal respiratory effort Assessment & Plan Assessment and plan (1) Atrial flutter: Status: Acute Plan: -Continue IV amiodarone, metoprolol, apixaban as per cardiology/hospitalist -Awaiting bed @ [facility] for JAMAL/cardioversion (2) Systolic heart failure, chronic: Status: Acute Plan: -Continue atorvastatin -There are plans underway for an outpatient AICD due to reduced LVEF%
[2021-09-11] VITALS (14 sets, daily range): BP systolic 82–107; BP diastolic 57–65; PULSE 107–123; RESP 15–28; TEMP 36.1–36.2; O2SAT 95–97
--- NOTE | 2021-09-11 02:19 | PC.NURSE ---
Evening/outside sales manager note: Patient sleeping throught the night, remains in A-fib/flutter, rate 110s at rest, up to 120s while ambulating to bathroom, asymptomatic, Amiodarone infusing as ordered. BP at 0200 82/58 with a MAP of 66, Hospitalist notified, no new orders at this time, 0300 PO metoprolol held.
[2021-09-11 05:59] LABS: Blood Urea Nitrogen 20 mg/dL (7-17); Calcium 9.2 mg/dL (8.4-10.2); Carbon Dioxide 26 mmol/L (22-32); Chloride 106 mmol/L (98-107); Estimated Glomerular Filt Rate > 60.0 mL/min (>60); Glucose 110 mg/dL (80-110); HEMOLYSIS < 15 (0-50); Magnesium 1.8 mg/dL (1.6-2.3); Potassium 3.8 mmol/L (3.4-5.1); Sodium 138 mmol/L (137-145)
[2021-09-11] MEDS: METOPROLOL ER 50 MG TABLET 100 MG PO (08:19)
[2021-09-11] MEDS: VALSARTAN PO (08:19)
[2021-09-11] MEDS: APIXABAN 5 MG TABLET PO (08:19)
[2021-09-11] MEDS: DOCUSATE 100 MG CAPSULE PO (08:19)
[2021-09-11] MEDS: SACUBITRIL PO (08:19)
--- NOTE | 2021-09-11 09:51 | PM.EVENT ---
Event Note Event Note: HR improved and off amiodarone infusion this morning. Downgraded prior to teleICU round. Teleintensivist will sign off. Please reconsult if ICU needs arise.
--- NOTE | 2021-09-11 09:54 | PC.NURSE ---
pt denies pain or any chest discomfort- since admission pt had been mostly asymptomatic - amiodarone gtt completed and initiated po metoprolol this am - awaitng 12lead ekg to confirm rhythm- up ad drake in room
--- NOTE | 2021-09-11 11:59 | P.DS_ITS ---
History of Present Illness History of Present Illness Date Patient Seen: 09/11/21 Time Patient Seen: 11:59 Chief complaint: Heart racing- Congestive hf- sent by [facility] Narrative: Per Dr. Gutierrez, The patient is a 71-year-old female with a history of chronic systolic heart failure with an ejection fraction of 25-30%, osteoporosis, and hyperlipidemia who was in her usual state of health until earlier today.? The patient takes her blood pressure daily.? She also takes her pulse as well.? She has no history of tachyarrhythmias.? When she took her pulse and blood pressure this morning she noted her heart rate was 120.? As that persisted she presented to the emergency room for evaluation.? Patient denies any associated chest pain.? She had no shortness of breath.? She denies any orthopnea.? She has no lower extremity edema.? In fact the patient's heart failure was diagnosed via echo as she was clinically asymptomatic.? As her ejection fraction 25% scheduled to have a defibrillator placed in February of this year.? Patient lives in [place].? She is here in [place] to assist with her rbfadf-ro-yov as a result of her father in [place] passing away a few months ago.? The patient takes carvedilol and Entresto for her heart failure.? She did take her usual medication this morning.? In the emergency department she was given 5 mg of IV metoprolol however her heart rate remained elevated.? After consultation with Cardiology, Dr. Bunn was recommended that the patient be admitted to the hospital, switched from carvedilol to metoprolol and anticoagulated for her atrial flutter.? In the emergency room she was given 6 mg of adenosine.? This clearly identified flutter waves.? As the patient remains tachycardic she is admitted to the hospital for inpatient treatment of atrial flutter. Discharge Providers Provider Date of admission: 09/07/21 12:20 Discharge Date: 09/11/21 Primary care physician: Doctor New MD Discharge provider: Frederick Armenta DO Summary Hospital Course Discharge Diagnosis: 1. atrial flutter with RVR 2. Chronic systolic heart failure Hospital Course: This was a 71-year-old female admitted to the hospital with atrial flutter with rapid ventricular response. Patient was started on oral metoprolol which was increased slowly due to hypotension. She had intermediate conversion into sinus rhythm after initiation of an amiodarone infusion. After her amiodarone infusion initially completed, the patient again returned into atrial fibrillation with rapid ventricular response. Initially the plan was for JAMAL and cardioversion, however this was not available due to lack of bed availability at [facility] or elsewhere. Attempted a 2nd amiodarone infusion as recommended by Cardiology which again helped but after removal she was again not adequately rate controlled. After further discussion with Briseyda flores she was recommended to discharge home on 100 mg of metoprolol twice daily, amiodarone 200 mg twice daily, and was set up for an appointment with Dr. Cabezas as an outpatient for further management given the patient's lack of symptoms. Echocardiogram performed here showed an EF of 20-25% consistent with her prior studies out of [facility]. She was unable to be started on Kraig or Arb therapy due to hypotension and need for rate control. She had been on Entresto but this was held due to hypotension. Time Spent with Patient Time spent: Greater than 30 minutes Exam Vital Signs (past 8 hours): - 09/11/21 04:00 09/11/21 04:01 09/11/21 07:48 Temperature 97.0 F L 97.2 F L Pulse Rate 116 H 117 H 123 H Respiratory Rate 19 19 20 Blood Pressure 98/57 L 103/62 Pulse Oximetry 95 95 97 09/11/21 08:05 09/11/21 08:19 09/11/21 09:50 Temperature Pulse Rate 116 H 115 H Respiratory Rate Blood Pressure 103/62 Pulse Oximetry 95 09/11/21 09:53 Temperature Pulse Rate 114 H Respiratory Rate 28 H Blood Pressure Pulse Oximetry Oxygen Delivery Method Room Air Oxygen Flow Rate 0 Narrative Exam Narrative: GENERAL APPEARANCE: Well developed, well nourished, in no acute distress. SKIN: Inspection of the skin reveals no rashes, ulcerations or petechiae. HEENT:? Normocephalic atraumatic, extraocular muscles are intact, oropharynx is clear and mucous membranes are moist, neck is supple without adenopathy NECK: Supple and symmetric. There was no thyroid enlargement, and no tenderness, or masses were felt. LUNGS: Auscultation of the lungs revealed no wheezes, rhonchi, or rales. CARDIOVASCULAR:? Tachycardic, irregularly irregular, without murmurs, rubs, or gallops.? Peripheral pulses were 2+ and symmetric. ABDOMEN: Soft and nontender with normal bowel sounds. No ascites was noted. MUSCULOSKELETAL: There was no tenderness or effusions noted. Muscle strength and tone were normal. EXTREMITIES: No cyanosis, clubbing or edema. NEUROLOGIC: Alert and oriented x 3. Normal affect. Strength is +5/5 in the Upper Extremities and Lower Extremities Bilaterally. Objective Labs Result Diagrams: 09/07/21 10:15 09/11/21 05:30 Labs: Laboratory Results - last 24 hr 09/11/21 05:30 Sodium 138 Potassium 3.8 Chloride 106 Carbon Dioxide 26 BUN 20 H Creatinine 0.54 Estimated GFR > 60.0 BUN/Creatinine Ratio 37.0 H Glucose 110 Calcium 9.2 Magnesium 1.8 PFSH Medical History Congestive heart failure Family History (Updated 09/07/21 @ 16:57 by Lily Gutierrez MD) Brother Heart transplant failure Mother FH: heart attack Social History household members: spouse and family Smoking Status: Never smoker alcohol intake: current Discharge Plan Discharge Plan Patient Disposition: Home Provider Discharge Comment: You were admitted to the hospital with atrial fibrillation and flutter. Medications changed. Entresto stopped temporarily due to low blood pressures and need for rate control. Please follow up with Dr. Cabezas of cardiology next week. They will arrange follow up for you. Discharge orders & Medications Prescriptions: New Eliquis 5 mg Tablet 5 mg PO BID 30 Days Qty: 60 RF: 0 metoprolol succinate 100 mg tablet extended release 24 hr 100 mg PO BID 30 Days Qty: 60 RF: 0 amiodarone 200 mg tablet 200 mg PO BID 30 Days Qty: 60 RF: 0 Continued atorvastatin 10 mg Tablet 10 mg PO BEDTIME RF: 0 alendronate 70 mg Tablet 70 mg PO QWEEK RF: 0 Discontinued carvedilol 12.5 mg Tablet 12.5 mg PO BID RF: 0 aspirin 81 mg Tablet 81 mg PO DAILY RF: 0 Entresto 97-103 mg Tablet 1 tab PO BID RF: 0 Follow up/Referrals: Miscellaneous,DoctorMD [Primary Care Provider] - Jocelynn,Bhrigu, MD [Physician] - 3-5 Days Diet/Activity/Treatments Diet: Diet as Tolerated Activity: As tolerated Discharge Data Primary Care Provider: Areliscellaneous,Doctor Quality MIPS - DC The patient has current or prior documentation of left ventricular ejection fraction (LVEF) less than 40%, or moderate or severely depressed left ve ntricular systolic function.: Yes A. The patient was prescribed or already taking an Angiotensin-Converting Enzyme (KRAIG) Inhibitor, or Angiotensin Receptor Anival (ARB).: No B. The patient was prescribed or already taking a beta-anival. [If Yes to Both A & B, STOP here]: Yes Patient not prescribed/taking KRAIG or ARB for medical/patient/system reason(s) including (ex: allergy, intolerance, contraindication).: hypotension
--- NOTE | 2021-09-11 13:59 | PC.NURSE ---
discharged to home with plan to follow up with Dr. Cabezas for cardiology consult and full explanation of all new rx as well as ones that should be held- answered all questions that pt and her spouse had to their satisfaction- discharged to home at this time
== END 2021-09-11 13:50 | disposition home or self-care (01) | DRG 309 ==
LOC: ED 12:03 → AC 12:21 → ICU 13:13
PROVIDERS: Internal Medicine; Internal Medicine Pulmonary Disease; Admitting Provider Internal Medicine; Emergency Provider Emergency Medicine; Referring Provider Emergency Medicine; Visit Provider Internal Medicine
DX: I48.92 Unspecified atrial flutter (principal); I50.22 Chronic systolic (congestive) heart failure; I95.9 Hypotension, unspecified; E78.5 Hyperlipidemia, unspecified; M81.0 Age-related osteoporosis without current pathological fracture; Z20.822 Contact with and (suspected) exposure to COVID-19
CPT/HCPCS: 36415; 36592; 71045; 80048; 80053; 82550; 83690; 83735; 83880; 84443; 84484; 85025; 85610; 85730; 87635; 87797; 93005; 93010; 93306; 94760; 96374; 99284; C9803; J0153; J0282

== ENCOUNTER 2021-09-16 09:50 | Inpatient (IN) | payer MEDICARE, SELFPAY ==
[2021-09-08 12:54] VITALS: BMI 25.9
[2021-09-16] VITALS (32 sets, daily range): BP systolic 107–131; BP diastolic 67–92; PULSE 107–119; RESP 18–37; TEMP 36.7; O2SAT 91–97; BMI 26.2
--- NOTE | 2021-09-16 10:03 | DI.RAD.S_ITS ---
PROCEDURE: XR CHEST 1V INDICATIONS: chest pain TECHNIQUE: One view of the chest was acquired. COMPARISON: [facility], CR, XR CHEST 1V, 09/07/2021, 10:20. FINDINGS: Surgical changes and devices: None. Lungs and pleura: Diffuse increased prominent interstitial markings. Suspect Arslan B lines. No pleural effusions or pneumothorax. Mediastinum: Mediastinal contours appear unchanged. Heart size is prominent, unchanged. Bones and chest wall: No suspicious bony lesions. Overlying soft tissues appear unremarkable. IMPRESSION: Mild fluid overload/CHF. Dictated by: Jozef Garcia M.D. on 09/16/2021 at 10:19 Approved by: Jozef Garcia M.D. on 09/16/2021 at 10:20
[2021-09-16 10:21] LABS: Add Manual Diff / Slide Review NO; Basophils Absolute Auto 0 /uL (0-100); Basophils Percent Auto 0.5 % (0-2); Eosinophils Absolute Auto 100 /uL (0-450); Eosinophils Percent Auto 0.5 % (2-4); Hematocrit 42.7 % (36-46); Hemoglobin 13.9 g/dL (12.0-16.0); Lymphocytes Absolute Auto 1300 /uL (1100-4500); Lymphocytes Percent Auto 12.8 % (25-40); Mean Corpuscular HGB Conc 32.5 % (30-36); Mean Corpuscular Hemoglobin 31.1 PG (26-34); Mean Corpuscular Volume 95.6 fL (80-100); Monocytes Absolute Auto 600 /uL (0-900); Monocytes Percent Auto 5.7 % (3-14); Neutrophils Absolute Auto 7900 /uL (1500-7000); Neutrophils Percent Auto 80.5 % (50-75); Platelet Count 191 X10^3/uL (150-400); Red Blood Cell Count 4.47 X10^6/uL (4.0-5.2); Red Cell Distribution Width 13.2 % (11.6-14.8); White Blood Cell Count 9.8 X10^3/uL (4.5-11.0)
--- NOTE | 2021-09-16 10:21 | ED.CHESTPAIN ---
HPI - Chest Pain General Chief Complaint: Chest Pain Stated Complaint: sob/thoracic pain/upper middle chest pain today Time Seen by Provider: 09/16/21 10:09 Source: patient Mode of arrival: Ambulatory Limitations: no limitations History of Present Illness HPI narrative: Patient is a 71-year-old female. I evaluated the patient here in the emergency department a couple weeks ago. She was admitted for atrial flutter and rate control on anticoagulation. During that time she was rate controlled. Was sent home on Eliquis. Also on amiodarone and metoprolol. She has an appointment with Cardiology already scheduled for tomorrow. Woke up this morning with shortness of breath and discomfort in her epigastric region. No lower extremity swelling. No palpitations. No lightheadedness. Has not tried anything for symptoms prior to arrival. She has taken all of her medications as directed. Related Data Home Medications Medication Instructions Recorded Confirmed alendronate 70 mg tablet 70 mg PO QWEEK 09/07/21 09/07/21 atorvastatin 10 mg tablet 10 mg PO BEDTIME 09/07/21 09/07/21 Previous Rx's Medication Instructions Recorded amiodarone 200 mg tablet 200 mg PO BID 30 Days #60 tab 09/11/21 apixaban 5 mg tablet (Eliquis) 5 mg PO BID 30 Days #60 tab 09/11/21 metoprolol succinate 100 mg 100 mg PO BID 30 Days #60 tab 09/11/21 tablet,extended release 24 hr Allergies Allergy/AdvReac Type Severity Reaction Status Date / Time No Known Drug Allergies Allergy Verified 09/16/21 10:04 Review of Systems Cardiovascular Cardiovascular: Reports as per HPI and Reports system reviewed and no additional complaints, except as documented Respiratory Respiratory: Reports as per HPI and Reports system reviewed and no additional complaints, except as documented Gastrointestinal Gastrointestinal: Reports as per HPI, Reports system reviewed and no additional complaints, except as documented, Denies nausea and Denies vomiting Genitourinary Genitourinary: Reports system reviewed and no additional complaints, except as documented Musculoskeletal Musculoskeletal: Reports system reviewed and no additional complaints, except as documented Neurologic Neurologic: Reports system reviewed and no additional complaints, except as documented Hematologic/Lymphatic On Anticoagulants: Yes Patient History Medical History Congestive heart failure Family History (Updated 09/07/21 @ 16:57 by Lily Gutierrez MD) Brother Heart transplant failure Mother FH: heart attack Social History household members: spouse and family Smoking Status: Never smoker alcohol intake: current Smoking Status: Never smoker alcohol intake frequency: 0-2 drinks per day Substance Use Type: does not use Exam Initial Vital Signs Initial Vital Signs: Vital Signs Temperature 98.0 F 09/16/21 10:00 Pulse Rate 109 H 09/16/21 10:00 Respiratory Rate 29 H 09/16/21 10:00 Blood Pressure 129/92 H 09/16/21 10:00 Pulse Oximetry 97 09/16/21 10:00 Const General: cooperative, comfortable and well developed Limitations: mental status not altered HENMT Head: normal to inspection and normocephalic Chest Chest: normal inspection of the chest and No tenderness Resp Effort & Inspection: normal respiratory effort Auscultation: clear to auscultation bilaterally Cardio Rate: regular rate Rhythm: regular rhythm GI Inspection: non-distended Palpation: soft, No firm and No tender Skin Lesions: no lesions Rashes: no rashes Neuro General: patient alert, patient awake, patient oriented x3 and moves all extremities Extrem General: normal to inspection, capillary refill normal and No edema Psych Appearance: grossly normal and well kempt Course Orders Ordered: ED Orders 09/16/21 10:03 XR chest 1V Stat Complete Blood Count AUTO DIFF Stat Comprehensive Metabolic Panel Stat Lipase Stat NT-proBNP (BNP-Adult 18+) Stat Partial Thromboplastin Time Stat Prothrombin Time INR Stat Troponin & CK Cardiac Panel Stat EKG-12 Lead Stat 09/16/21 10:07 COVID19 - ADMIT (WEBMETHODS CONSULTANT swab/PCR) Stat Discontinued Medications Furosemide (Furosemide 40 Mg/4 Ml Vial) 40 mg IV NOW ONE Stop: 09/16/21 10:25 Last Admin: 09/16/21 10:38 Dose: 40 mg Documented by: TERI Vital Signs Vital signs: Vital Signs - 8 hr 09/16/21 11:00 09/16/21 11:30 09/16/21 12:00 Pulse Rate 107 H 108 H 109 H Respiratory Rate Blood Pressure 116/80 116/86 119/90 Pulse Oximetry 93 94 94 09/16/21 12:30 09/16/21 12:39 09/16/21 13:00 Pulse Rate 111 H 112 H 113 H Respiratory Rate 37 H 21 24 Blood Pressure 120/82 123/83 115/80 Pulse Oximetry 95 96 95 09/16/21 13:30 09/16/21 14:00 09/16/21 14:30 Pulse Rate 113 H 113 H 114 H Respiratory Rate 24 29 H 27 H Blood Pressure 122/85 128/82 123/83 Pulse Oximetry 94 95 96 09/16/21 15:00 09/16/21 15:30 09/16/21 16:00 Pulse Rate 113 H 114 H 113 H Respiratory Rate 29 H 21 18 Blood Pressure 126/85 131/85 121/73 Pulse Oximetry 95 95 96 09/16/21 16:30 09/16/21 17:00 09/16/21 17:30 Pulse Rate 113 H 114 H 115 H Respiratory Rate 21 19 20 Blood Pressure 111/67 111/77 114/79 Pulse Oximetry 95 95 94 MDM - Chest Pain Medical Records Data Attestation: I reviewed the patient's medical records. Lab Data Attestation: I reviewed the patient's lab results. Result diagrams: 09/16/21 10:03 09/16/21 10:03 Labs: Lab Results 09/16/21 09/16/21 09/16/21 Range/Units 10:03 10:03 10:03 WBC 9.8 (4.5-11.0) X10^3/uL RBC 4.47 (4.0-5.2) X10^6/uL Hgb 13.9 (12.0-16.0) g/dL Hct 42.7 (36-46) % MCV 95.6 (80-100) fL MCH 31.1 (26-34) PG MCHC 32.5 (30-36) % RDW 13.2 (11.6-14.8) % Plt Count 191 (150-400) X10^3/uL Neut % (Auto) 80.5 H (50-75) % Lymph % (Auto) 12.8 L (25-40) % [place] % (Auto) 5.7 (3-14) % Eos % (Auto) 0.5 L (2-4) % Baso % (Auto) 0.5 (0-2) % Neut # (Auto) 7900 H (7644-9489) /uL Lymph # (Auto) 1300 (0713-7645) /uL [place] # (Auto) 600 (0-900) /uL Eos # (Auto) 100 (0-450) /uL Baso # (Auto) 0 (0-100) /uL PT 19.5 H D (10.1-12.7) SECONDS INR 1.7 H (0.9-1.3) APTT 40 H D (26.4-36.2) SECONDS Sodium 138 (137-145) mmol/L Potassium 4.5 (3.4-5.1) mmol/L Chloride 106 (98-107) mmol/L Carbon Dioxide 22 (22-32) mmol/L BUN 22 H (7-17) mg/dL Creatinine 0.92 (0.52-1.04) mg/dL Estimated GFR 59.8 L (>60) mL/min BUN/Creatinine Ratio 23.9 H (6-22) Glucose 177 H (80-110) mg/dL Calcium 9.3 (8.4-10.2) mg/dL Total Bilirubin 0.9 (0.2-1.3) mg/dL AST 71 H (14-36) IU/L ALT 101 H (<35) IU/L Alkaline Phosphatase 98 (38-126) U/L Total Creatine Kinase 44 (30-135) U/L CK-MB (CK-2) TNP CK-MB (CK-2) Rel Index TNP Troponin I < 0.012 (0.01-0.034) ng/mL NT-Pro-B Natriuret Pep (<125) pg/mL Total Protein 6.9 (6.3-8.2) g/dL Albumin 4.4 (3.5-5.0) g/dL Globulin 2.5 (1.7-4.1) g/dL Albumin/Globulin Ratio 1.8 (1.0-2.8) Lipase 112 (23-300) U/L SARS-CoV-2 (PCR) (Negative) 09/16/21 09/16/21 Range/Units 10:03 10:07 WBC (4.5-11.0) X10^3/uL RBC (4.0-5.2) X10^6/uL Hgb (12.0-16.0) g/dL Hct (36-46) % MCV (80-100) fL MCH (26-34) PG MCHC (30-36) % RDW (11.6-14.8) % Plt Count (150-400) X10^3/uL Neut % (Auto) (50-75) % Lymph % (Auto) (25-40) % [place] % (Auto) (3-14) % Eos % (Auto) (2-4) % Baso % (Auto) (0-2) % Neut # (Auto) (9104-3635) /uL Lymph # (Auto) (8730-7397) /uL [place] # (Auto) (0-900) /uL Eos # (Auto) (0-450) /uL Baso # (Auto) (0-100) /uL PT (10.1-12.7) SECONDS INR (0.9-1.3) APTT (26.4-36.2) SECONDS Sodium (137-145) mmol/L Potassium (3.4-5.1) mmol/L Chloride (98-107) mmol/L Carbon Dioxide (22-32) mmol/L BUN (7-17) mg/dL Creatinine (0.52-1.04) mg/dL Estimated GFR (>60) mL/min BUN/Creatinine Ratio (6-22) Glucose (80-110) mg/dL Calcium (8.4-10.2) mg/dL Total Bilirubin (0.2-1.3) mg/dL AST (14-36) IU/L ALT (<35) IU/L Alkaline Phosphatase (38-126) U/L Total Creatine Kinase (30-135) U/L CK-MB (CK-2) CK-MB (CK-2) Rel Index Troponin I (0.01-0.034) ng/mL NT-Pro-B Natriuret Pep 5080 H (<125) pg/mL Total Protein (6.3-8.2) g/dL Albumin (3.5-5.0) g/dL Globulin (1.7-4.1) g/dL Albumin/Globulin Ratio (1.0-2.8) Lipase (23-300) U/L SARS-CoV-2 (PCR) Negative (Negative) Imaging Data Chest x-ray: Radiologist's Impression: [address] [address] XRay Report Signed Patient: Sonja Auguste MR#: [id number] : 1950 Acct:[id number] Age/Sex: 71 / F Date of Service: 09/16/21 Loc: ED Accession Number: [id number] ?? Procedure: XR chest 1V Ordering Provider: Srinivas Hunt D.O. PROCEDURE:? XR CHEST 1V ? INDICATIONS:? chest pain ? TECHNIQUE:? One view of the chest was acquired.? ? COMPARISON:? [facility], , XR CHEST 1V, 09/07/2021, 10:20. ? FINDINGS:? ? Surgical changes and devices:? None.? ? Lungs and pleura:? Diffuse increased prominent interstitial markings.? Suspect Arslan B lines.? No pleural effusions or pneumothorax.? ? Mediastinum:? Mediastinal contours appear unchanged.? Heart size is prominent, unchanged. ? ? Bones and chest wall:? No suspicious bony lesions.? Overlying soft tissues appear unremarkable.? ? IMPRESSION:? Mild fluid overload/CHF. ? ? Dictated by: Jozef Garcia M.D. on 09/16/2021 at 10:19 ? ? Approved by: Jozef Garcia M.D. on 09/16/2021 at 10:20?? ECG Data Attestation: I personally reviewed and interpreted this ECG as follows: Interpretation: Tachycardia Ventricular rate 107 Left axis deviation LVH No P waves noted Most likely a flutter MDM Narrative Medical decision making narrative: I did discuss the case with Dr. Bunn. He agreed with the diuretics. He also stated that ideally given her decreased ejection fraction, her persistent heart rate greater than 100 and her presenting symptoms today that a transfer to [facility] for a JAMLA with cardioversion would be the best option. I also feel that transferring her to [facility] over another facility would be the most beneficial since she is already plugged into that Cardiology System. We attempted to contact [facility]. They initially stated that they would most likely have bed availability but they were somewhat concerned about staffing. After multiple hours they contacted us back stating that they do have beds but no nursing staff to cover the beds. Care was turned over to Dr. Wiggins. Patient was given her night medications. Discussion will be had with patient and Dr. Wiggins about options to include transfer verses discharge to her normal follow-up tomorrow. Discharge Plan Departure Prescriptions: No Action atorvastatin 10 mg Tablet 10 mg PO BEDTIME RF: 0 alendronate 70 mg Tablet 70 mg PO QWEEK RF: 0 Eliquis 5 mg Tablet 5 mg PO BID 30 Days Qty: 60 RF: 0 metoprolol succinate 100 mg tablet extended release 24 hr 100 mg PO BID 30 Days Qty: 60 RF: 0 amiodarone 200 mg tablet 200 mg PO BID 30 Days Qty: 60 RF: 0
[2021-09-16 10:30] LABS: INR 1.7 (0.9-1.3); Prothrombin Time 19.5 SECONDS (10.1-12.7)
[2021-09-16 10:33] LABS: PTT Partial Thromboplastin Tim 40 SECONDS (26.4-36.2)
[2021-09-16 10:35] LABS: Alanine Aminotransferase 101 IU/L (<35); Albumin 4.4 g/dL (3.5-5.0); Albumin Globulin Ratio 1.8 (1.0-2.8); Alkaline Phosphatase 98 U/L (38-126); Aspartate Aminotransferase 71 IU/L (14-36); BUN Creatinine Ratio 23.9 (6-22); Bilirubin Total 0.9 mg/dL (0.2-1.3); Blood Urea Nitrogen 22 mg/dL (7-17); Calcium 9.3 mg/dL (8.4-10.2); Carbon Dioxide 22 mmol/L (22-32); Chloride 106 mmol/L (98-107); Creatine Kinase 44 U/L (30-135); Estimated Glomerular Filt Rate 59.8 mL/min (>60); Globulin 2.5 g/dL (1.7-4.1); Glucose 177 mg/dL (80-110); HEMOLYSIS 19 (0-50); Lipase 112 U/L (23-300); Potassium 4.5 mmol/L (3.4-5.1); Sodium 138 mmol/L (137-145); Total Protein 6.9 g/dL (6.3-8.2)
[2021-09-16] MEDS: FUROSEMIDE 40 MG/4 ML VIAL IV (10:38)
[2021-09-16 10:46] LABS: Troponin I < 0.012 ng/mL (0.01-0.034)
[2021-09-16 11:15] LABS: COVID19 - ADMIT (NP swab/PCR) Negative (Negative)
[2021-09-16 11:45] LABS: NT-proBNP (BNP-Adult 18+) 5080 pg/mL (<125)
[2021-09-16] MEDS: METOPROLOL ER 50 MG TABLET 100 MG PO (19:31)
[2021-09-16] MEDS: ATORVASTATIN 20 MG TABLET 10 MG PO (19:31)
[2021-09-16] MEDS: AMIODARONE 200 MG TABLET PO (19:31)
[2021-09-16] MEDS: APIXABAN 5 MG TABLET PO (19:32)
[2021-09-17] VITALS (36 sets, daily range): BP systolic 100–125; BP diastolic 65–88; PULSE 114–135; RESP 18–37; TEMP 36.3–37.1; O2SAT 90–96; BMI 26.2
--- NOTE | 2021-09-17 08:07 | PC.NURSE ---
Rounded on this pt to assess her vitals and symptoms. She is awake in bed, laying on her back, appearing comfortable at this time. Call light within reach. Wearing 2L NC, which is new for her; per nightshift she was desatting in the night. HR 120s, BP stable, resps e/u. Pt understands that we are following up with [facility] at 0900.
[2021-09-17] MEDS: METOPROLOL ER 50 MG TABLET 100 MG PO ×2 (10:02→20:42)
[2021-09-17] MEDS: AMIODARONE 200 MG TABLET PO ×2 (10:02→20:42)
[2021-09-17] MEDS: APIXABAN 5 MG TABLET PO ×2 (10:02→20:43)
--- NOTE | 2021-09-17 13:11 | PC.NURSE ---
Report called to VIVIEN Kumar.
[2021-09-17] MEDS: FUROSEMIDE 40 MG/4 ML VIAL IV (13:53)
--- NOTE | 2021-09-17 17:58 | PM.HP.1 ---
History of Present Illness History of Present Illness Date Patient Seen: 09/17/21 Time Patient Seen: 12:00 Chief complaint: sob/thoracic pain/upper middle chest pain today Narrative: Ms. Sonja Auguste is a 71W with PMH CHFrEF 25-30%, osteoporosis, HL, and recent admission for tachycardia and atrial flutter. She is planned to have a defibrillator placed later this year. She was discharged on 09/11. She was started on metoprolol and then started on amiodarone during which she converted to sinus, but then went back into atrial fib/flutter. Due to this attempted transfer to [facility] was done, but no beds were available. She then had second amio infusion which did not completely control rate. Per notes cardiology recommended discharged on metoprolol and amiodarone and outpatient follow up. She was previously on entresto, but this was not given due to hypotension, she was not on doretha/arb due to hypotension. She presented back to the hospital yesterday because she woke up short of breath with epigastric discomfort. She was found to have pulmonary vascular congestion and was tachycardic in atrial flutter. Attempt was made to transfer patient from ED to another hospital for JAMAL cardioversion but no beds were available. Plans for JAMAL with cardioversion were in place at [facility] for 09/18 and she was admitted for treatment while awaiting transfer. In the ED workup was done, labs were notable for WBC 9.8, hgb 13.9, INR 1.7, creatinine 0.92, BNP 5080. Chest xray showed showed fluid overload. She was ordered for lasix and her home rate control medications of metoprolol and amiodarone. As stated above she is pending transfer for JAMAL cardioversion Patient History Medical History Congestive heart failure Family & Social History Family History Brother Heart transplant failure Mother FH: heart attack Social History: household members spouse,family Safety & Behavioral: Feels Safe in Current Yes Environment Been Physically Hurt or No Threatened By a Person Suicidal Ideation Description None Suicide Plan Description No Plan Tobacco & Substance use: Smoking Status Never smoker alcohol intake current alcohol intake frequency 0-2 drinks per day Substance Use Type does not use Meds Home Medications and Allergies Home Medications Medication Instructions Recorded Confirmed Type alendronate 70 mg tablet 70 mg PO QWEEK 09/07/21 09/17/21 History atorvastatin 10 mg tablet 10 mg PO BEDTIME 09/07/21 09/17/21 History amiodarone 200 mg tablet 200 mg PO BID 30 Days #60 tab 09/11/21 09/17/21 Rx apixaban 5 mg tablet (Eliquis) 5 mg PO BID 30 Days #60 tab 09/11/21 09/17/21 Rx metoprolol succinate 100 mg 100 mg PO BID 30 Days #60 tab 09/11/21 09/17/21 Rx tablet,extended release 24 hr Allergies Allergy/AdvReac Type Severity Reaction Status Date / Time No Known Drug Allergies Allergy Verified 09/17/21 08:46 Review of Systems Review of Systems Narrative: 14 systems reviewed and negative aside from what is noted in HPI Exam Vital Signs (past 8 hours): - 09/17/21 10:00 09/17/21 10:30 09/17/21 11:00 Temperature Pulse Rate 119 H 120 H 117 H Respiratory Rate 24 25 H 26 H Blood Pressure 125/88 Pulse Oximetry 96 96 96 09/17/21 11:07 09/17/21 11:30 09/17/21 12:00 Temperature Pulse Rate 118 H 117 H 117 H Respiratory Rate 24 24 Blood Pressure 125/88 118/77 Pulse Oximetry 96 95 09/17/21 12:30 09/17/21 12:56 09/17/21 13:00 Temperature Pulse Rate 115 H 115 H Respiratory Rate 22 30 H Blood Pressure 118/77 Pulse Oximetry 92 95 09/17/21 13:08 09/17/21 13:36 09/17/21 15:25 Temperature 97.8 F 98.8 F Pulse Rate 114 H 115 H 126 H Respiratory Rate 37 H 18 20 Blood Pressure 100/67 109/84 102/75 Pulse Oximetry 94 93 92 Oxygen Delivery Method Nasal Cannula Oxygen Flow Rate 1 Narrative Exam Narrative: GENERAL APPEARANCE: no acute distress. SKIN: no rashes HEENT:?PERRL, moist mucous membranes NECK: no JVD, trachea midline LUNGS: bilateral crackles, mild wheezing CARDIOVASCULAR:? Tachycardic, irregularly irregular, with no murmurs ABDOMEN: Soft, nontender, nondistended, no organomegaly EXTREMITIES: No edema NEUROLOGIC: alert and oriented, no focal defictis noted PSYCH: pleasant, cooperative Objective Labs Result Diagrams: 09/16/21 10:03 09/16/21 10:03 Assessment & Plan Assessment & Plan narrative: 1. Acute systolic CHF exacerbation -elevated BNP on admission, with crackles on exam, and pulmonary edema on chest xray -lasix ordered in ED, will continue on floor -repeat BMP to eval kidney function, electrolytes -recent ECHO showed EF 20-25% -low sodium diet 2. Atrial flutter with rapid ventricular response, acute -monitor on cardiac tele -continue amiodarone, metoprolol -continue apixaban -plan for transfer tomorrow to [facility] for JAMAL cardioversion CODE: Full Proxy: Rosalio Auguste, I have utilized all available resources to review update, and confirm his current medications Time Spent With Patient Critical Care time: I spent a total of [] minutes of critical care time on this patient's care today; this time is exclusive of procedural time.
[2021-09-17 19:55] LABS: BUN Creatinine Ratio 21.6 (6-22); Blood Urea Nitrogen 19 mg/dL (7-17); Calcium 9.3 mg/dL (8.4-10.2); Carbon Dioxide 29 mmol/L (22-32); Chloride 100 mmol/L (98-107); Estimated Glomerular Filt Rate > 60.0 mL/min (>60); Glucose 154 mg/dL (80-110); HEMOLYSIS < 15 (0-50); Magnesium 2.1 mg/dL (1.6-2.3); Potassium 3.6 mmol/L (3.4-5.1); Sodium 137 mmol/L (137-145)
[2021-09-18] VITALS (8 sets, daily range): BP systolic 101–116; BP diastolic 74–78; PULSE 68–120; RESP 17–22; TEMP 36.2–36.6; O2SAT 92–97
[2021-09-18 06:32] LABS: Add Manual Diff / Slide Review NO; Basophils Absolute Auto 0 /uL (0-100); Basophils Percent Auto 0.5 % (0-2); Eosinophils Absolute Auto 0 /uL (0-450); Eosinophils Percent Auto 0.5 % (2-4); Hematocrit 40.3 % (36-46); Hemoglobin 13.4 g/dL (12.0-16.0); Lymphocytes Absolute Auto 1500 /uL (1100-4500); Lymphocytes Percent Auto 16.4 % (25-40); Mean Corpuscular HGB Conc 33.2 % (30-36); Mean Corpuscular Hemoglobin 31.1 PG (26-34); Mean Corpuscular Volume 93.8 fL (80-100); Monocytes Absolute Auto 900 /uL (0-900); Monocytes Percent Auto 9.7 % (3-14); Neutrophils Absolute Auto 6500 /uL (1500-7000); Neutrophils Percent Auto 72.9 % (50-75); Platelet Count 193 X10^3/uL (150-400); Red Cell Distribution Width 13.3 % (11.6-14.8); White Blood Cell Count 8.9 X10^3/uL (4.5-11.0)
[2021-09-18 06:45] LABS: BUN Creatinine Ratio 24.1 (6-22); Blood Urea Nitrogen 20 mg/dL (7-17); Calcium 9.1 mg/dL (8.4-10.2); Carbon Dioxide 29 mmol/L (22-32); Chloride 101 mmol/L (98-107); Estimated Glomerular Filt Rate > 60.0 mL/min (>60); Glucose 124 mg/dL (80-110); HEMOLYSIS < 15 (0-50); Magnesium 2.2 mg/dL (1.6-2.3); Potassium 3.6 mmol/L (3.4-5.1); Sodium 139 mmol/L (137-145)
--- NOTE | 2021-09-18 08:27 | PC.NURSE ---
Addendum entered by Yesika White R.N. 09/18/21 14:11: Patient left to [facility] for her JAMAL and cardioversion at 1345. Report called to VIVIEN Crawford. Patient may be coming back to [facility]. Explained to RN that ambulance needs to know one hour in advance if they need a ride back here. Original Note: Assess- Patient is alert and oriented x3. Her lung sounds are clear, but when up ambulating to the bathroom she does have some sob. Heart rate 116. She denies chest pain or heart palpitations. Patient is going to transfer to [facility] for a heart procedure, we are trying to get her there around 1500. Will keep updating as the shift goes on.
[2021-09-18] MEDS: AMIODARONE 200 MG TABLET PO (08:52)
[2021-09-18] MEDS: METOPROLOL ER 50 MG TABLET 100 MG PO (08:52)
[2021-09-18] MEDS: APIXABAN 5 MG TABLET PO (08:52)
--- NOTE | 2021-09-18 09:13 | CM.DANOTE ---
DCP: Case received, EMR reviewed and met with patient. Introduced self and role. This social work case manager remembers patient from her recent admission. DCP assessment completed based upon current information available. Patient is a 71 year old female who admitted yesterday morning to the care of the hospitalist team. PCP: Unknown at this time. Payer: confirmed: Medicare/[employer]. Patient came to the hospital via private vehicle secondary to her having increased shortness of breath. Patient was recently here on the for a-flutter. Patient holds diagnosis of acute systolic CHF and a-flutter. The plan is to transfer her over to [facility] for a defibrillator/JAMAL cardioversion. Met with patient in her room. She is pleasant, alert and oriented. She is independent at her baseline, and resides here in [place] with her spouse. Rosalio. She indicated, she is supposed to go over to [facility] at about 1:00 today. P: Patient has discharge orders today to be transported to [facility] for JAMAL/Cardioversion. Lorena Craig RN/Reconnaissance Man Discharge Planning/Care Management CM Discharge Assessment Start: 09/18/21 09:12 Freq: Status: Active Protocol: Document 09/18/21 09:12 (Rec: 09/18/21 09:13 [id number]) Discharge Planning Assessment Assigned Global Logistics Manager Lorena Craig RN/Reconnaissance Man Advance Directives? Yes Advance Directives on File No History Provided By Patient,Significant Other Prior Living Arrangements House Household Members spouse,family Type of transporation used prior to Drives own vehicle admit Independent with ADL's Yes Is patient alert and oriented? Yes Caregiver for Another No Barriers to Discharge No Discharge Plan Transfer to Higher Level of Care Transportation Arrangement ALS or BLS. Referrals Initiated None needed Whiteboard Updated in Patient Room with Yes name and ext. # of Global Logistics Manager Review Status In Process Next Review Type Continued Stay Review
--- NOTE | 2021-09-18 09:15 | P.DS_ITS ---
History of Present Illness History of Present Illness Chief complaint: sob/thoracic pain/upper middle chest pain today Narrative: Ms. Sonja Auguste is a 71W with PMH CHFrEF 25-30%, osteoporosis, HL, and recent admission for tachycardia and atrial flutter. She is planned to have a defibrillator placed later this year. She was discharged on 09/11. She was started on metoprolol and then started on amiodarone during which she converted to sinus, but then went back into atrial fib/flutter. Due to this attempted t ransfer to [facility] was done, but no beds were available. She then had second amio infusion which did not completely control rate. Per notes cardiology recommended discharged on metoprolol and amiodarone and outpatient follow up. She was previously on entresto, but this was not given due to hypotension, she was not on mario/arb due to hypotension. She presented back to the hospital yesterday because she woke up short of breath with epigastric discomfort. She was found to have pulmonary vascular congestion and was tachycardic in atrial flutter. Attempt was made to transfer patient from ED to another hospital for JAMAL cardioversion but no beds were available. Plans for JAMAL with cardioversion were in place at [facility] for 09/18 and she was admitted for treatment while awaiting transfer. In the ED workup was done, labs were notable for WBC 9.8, hgb 13.9, INR 1.7, creatinine 0.92, BNP 5080. Chest xray showed showed fluid overload. She was ordered for lasix and her home rate control medications of metoprolol and amiodarone. As stated above she is pending transfer for JAMAL cardioversion Discharge Providers Provider Date of admission: 09/17/21 11:57 Discharge Date: 09/18/21 Discharge provider: Clyde Beckford MD Summary Hospital Course Discharge Diagnosis: 1. Acute systolic CHF exacerbation with EF 20-25% 2. Atrial flutter with rapid ventricular response Hospital Course: Ms. Auguste was admitted recently with atrial flutter with rapid ventricular response. She was discharged after being started on amiodarone and metoprolol, but readmitted soon after due to continue tachycardia. Both last admission and this admission she was unable to be controlled well at this hospital, and attempts to transfer to higher level of care were coordinated with cardiology. They recommend JAMAL with ECHO which she is being transferred for. She may be able to go home after this procedure. She is discharged on a beta- anival. She is not discharged on an mario-inhibitor due to hypotension Exam Vital Signs (past 8 hours): - 09/18/21 04:56 09/18/21 08:52 09/18/21 08:55 Temperature 97.5 F L 97.6 F Pulse Rate 114 H 119 H 117 H Respiratory Rate 17 18 Blood Pressure 103/75 105/77 105/77 Pulse Oximetry 92 97 Oxygen Delivery Method Room Air Oxygen Flow Rate 1 Narrative Exam Narrative: GENERAL APPEARANCE: no acute distress. SKIN: no rashes HEENT:?PERRL, moist mucous membranes NECK: no JVD, trachea midline LUNGS: bilateral crackles, mild wheezing CARDIOVASCULAR:? Tachycardic, irregularly irregular, with no murmurs ABDOMEN: Soft, nontender, nondistended, no organomegaly EXTREMITIES: No edema NEUROLOGIC: alert and oriented, no focal defictis noted PSYCH: pleasant, cooperative Objective Labs Result Diagrams: 09/18/21 06:15 09/18/21 06:15 Labs: Laboratory Results - last 24 hr 09/17/21 09/18/21 09/18/21 19:30 06:15 06:15 WBC 8.9 RBC 4.30 Hgb 13.4 Hct 40.3 MCV 93.8 MCH 31.1 MCHC 33.2 RDW 13.3 Plt Count 193 Neut % (Auto) 72.9 Lymph % (Auto) 16.4 L Henderson % (Auto) 9.7 Eos % (Auto) 0.5 L Baso % (Auto) 0.5 Neut # (Auto) 6500 Lymph # (Auto) 1500 Henderson # (Auto) 900 Eos # (Auto) 0 Baso # (Auto) 0 Sodium 137 139 Potassium 3.6 3.6 Chloride 100 101 Carbon Dioxide 29 29 BUN 19 H 20 H Creatinine 0.88 0.83 Estimated GFR > 60.0 > 60.0 BUN/Creatinine Ratio 21.6 24.1 H Glucose 154 H 124 H Calcium 9.3 9.1 Magnesium 2.1 2.2 [facility] Medical History Congestive heart failure Family History Brother Heart transplant failure Mother FH: heart attack Social History household members: spouse and family Smoking Status: Never smoker alcohol intake: current Discharge Plan Discharge Plan Disposition: [facility] Diet/Activity/Treatments Diet: Low-sodium Quality MIPS - DC The patient has current or prior documentation of left ventricular ejection fraction (LVEF) less than 40%, or moderate or severely depressed left ventricular systolic function.: Yes A. The patient was prescribed or already taking an Angiotensin-Converting Enzyme (MARIO) Inhibitor, or Angiotensin Receptor Anival (ARB).: No B. The patient was prescribed or already taking a beta-anival. [If Yes to Both A & B, STOP here]: Yes Patient not prescribed/taking MARIO or ARB for medical/patient/system reason(s) including (ex: allergy, intolerance, contraindication).: hypotension
--- NOTE | 2021-09-18 18:52 | PC.NURSE ---
Addendum entered by Elisa Russell R.N. 09/18/21 19:23: Pt escorted to private vehicle with spouse as driver education instructor. Student nurse, Kike, accompanies pt via wheelchair. Pt left hospital in stable condition. Addendum entered by Elisa Russell R.N. 09/18/21 19:16: Home meds adjusted as per Dr. Beckford's conversation with pt and pt's spouse. Discharge instructions provided to pt and pt's spouse in written and verbal format. IV d/c'd and pressure wrap applied to left forearm iv site as pt on eliquis. Pt instructed to monitor. Pt reports all belongings and valuables in possession. Able to dress self for discharge. Original Note: Pt returns from [facility] via ambulance awake and alert. Room air 90-93% dependent on activity. Pt does state feels as though shortness of breath has improved since cardioversion. Pt's spouse is present, attentive, and involved in pt's care. Dr. Beckford informed pt has returned from [facility] and in to see and assess pt. Answers pt's questions as well as spouse's questions. Pt desires to discharge to home.
== END 2021-09-18 19:28 | disposition short-term general hospital (02) | DRG 308 ==
LOC: ED 09-17 07:05 → AC 09-17 11:59
PROVIDERS: Emergency Medicine; Admitting Provider Internal Medicine; Emergency Provider Emergency Medicine; Referring Provider Emergency Medicine; Visit Provider Internal Medicine
DX: I48.92 Unspecified atrial flutter (principal); I50.23 Acute on chronic systolic (congestive) heart failure; I95.9 Hypotension, unspecified; E78.5 Hyperlipidemia, unspecified; Z20.822 Contact with and (suspected) exposure to COVID-19
CPT/HCPCS: 36415; 71045; 80048; 80053; 82550; 83690; 83735; 83880; 84484; 85025; 85610; 85730; 87635; 93005; 93010; 94760; 96374; 99285; 99406; C9803; J1940

== ENCOUNTER → 2021-10-08 08:15 | Outpatient (CLI) | payer MEDICARE, SELFPAY ==
[2021-09-17 11:58] VITALS: BMI 26.2
[2021-10-08 09:11] LABS: Add Manual Diff / Slide Review NO; Basophils Absolute Auto 0 /uL (0-100); Basophils Percent Auto 0.7 % (0-2); Eosinophils Absolute Auto 200 /uL (0-450); Eosinophils Percent Auto 3.3 % (2-4); Hematocrit 42.7 % (36-46); Hemoglobin 13.9 g/dL (12.0-16.0); Lymphocytes Absolute Auto 800 /uL (1100-4500); Lymphocytes Percent Auto 15.6 % (25-40); Mean Corpuscular HGB Conc 32.6 % (30-36); Mean Corpuscular Hemoglobin 30.7 PG (26-34); Mean Corpuscular Volume 93.9 fL (80-100); Monocytes Absolute Auto 700 /uL (0-900); Monocytes Percent Auto 12.7 % (3-14); Neutrophils Absolute Auto 3700 /uL (1500-7000); Neutrophils Percent Auto 67.7 % (50-75); Platelet Count 206 X10^3/uL (150-400); Red Blood Cell Count 4.55 X10^6/uL (4.0-5.2); Red Cell Distribution Width 13.5 % (11.6-14.8); White Blood Cell Count 5.4 X10^3/uL (4.5-11.0)
[2021-10-08 10:11] LABS: BUN Creatinine Ratio 21.7 (6-22); Blood Urea Nitrogen 20 mg/dL (7-17); Calcium 9.5 mg/dL (8.4-10.2); Carbon Dioxide 24 mmol/L (22-32); Chloride 103 mmol/L (98-107); Estimated Glomerular Filt Rate 59.8 mL/min (>60); Glucose 99 mg/dL (80-110); HEMOLYSIS < 15 (0-50); Potassium 4.5 mmol/L (3.4-5.1); Sodium 139 mmol/L (137-145)
== END ==
PROVIDERS: Referring Provider Internal Medicine Cardiovascular Disease; Visit Provider Internal Medicine Cardiovascular Disease
DX: Z79.01 Long term (current) use of anticoagulants (principal); I50.23 Acute on chronic systolic (congestive) heart failure
CPT/HCPCS: 36415; 80048; 85025

== ENCOUNTER → 2021-12-23 07:07 | Outpatient (CLI) | payer MEDICARE, SELFPAY ==
[2021-09-17 11:58] VITALS: BMI 26.2
[2021-12-23 07:57] LABS: Add Manual Diff / Slide Review NO; Basophils Absolute Auto 0 /uL (0-100); Basophils Percent Auto 1.2 % (0-2); Eosinophils Absolute Auto 200 /uL (0-450); Eosinophils Percent Auto 4.5 % (2-4); Hematocrit 42.4 % (36-46); Hemoglobin 13.9 g/dL (12.0-16.0); Lymphocytes Absolute Auto 1000 /uL (1100-4500); Lymphocytes Percent Auto 25.8 % (25-40); Mean Corpuscular HGB Conc 32.7 % (30-36); Mean Corpuscular Hemoglobin 29.8 PG (26-34); Monocytes Absolute Auto 600 /uL (0-900); Monocytes Percent Auto 14.1 % (3-14); Neutrophils Absolute Auto 2200 /uL (1500-7000); Neutrophils Percent Auto 54.4 % (50-75); Platelet Count 161 X10^3/uL (150-400); Red Blood Cell Count 4.67 X10^6/uL (4.0-5.2); Red Cell Distribution Width 14.8 % (11.6-14.8)
[2021-12-23 08:26] LABS: BUN Creatinine Ratio 30.6 (6-22); Blood Urea Nitrogen 26 mg/dL (7-17); Calcium 9.6 mg/dL (8.4-10.2); Carbon Dioxide 29 mmol/L (22-32); Chloride 106 mmol/L (98-107); Cholesterol 165 mg/dL (140-199); Estimated Glomerular Filt Rate > 60.0 mL/min (>60); Glucose 108 mg/dL (80-110); HDL Cholesterol 50 mg/dL (40-60); HEMOLYSIS < 15 (0-50); LDL Cholesterol Calculated 98 mg/dL (<100); Potassium 4.3 mmol/L (3.4-5.1); Sodium 139 mmol/L (137-145); Triglycerides 86 mg/dL (35-150)
== END ==
PROVIDERS: PCP Nurse Practitioner Family; Referring Provider Internal Medicine Cardiovascular Disease; Visit Provider Internal Medicine Cardiovascular Disease
DX: I44.7 Left bundle-branch block, unspecified (principal); I50.22 Chronic systolic (congestive) heart failure; I48.92 Unspecified atrial flutter; Z79.01 Long term (current) use of anticoagulants
CPT/HCPCS: 36415; 80048; 80061; 85025

== ENCOUNTER → 2021-12-28 08:38 | Outpatient (CLI) | payer MEDICARE, SELFPAY ==
[2021-09-17 11:58] VITALS: BMI 26.2
--- NOTE | 2021-12-28 | DI.ECHO.S_ITS ---
[facility]---------+ [facility] +---------+ : : [address] : [address] : : : : [id number] : : : : Phone: [phone]+ Echocardiogram Report + + :Name: DINORAH ROSS Study Date: 12/28/2021 Height: 62 in : :[facility] ReadingLocation: Weight: 138 lb : : Gender: Female BSA: 1.6 m2 : :: 1950 Age: 71 yrs BP: 117/68 mmHg: :Reason For Study: SYSTOLIC HEART FAILURE : :Ordering Physician: RONNIE, : :JNEN Performed By: Jody Espino : :Referring: JENN CABEZAS : + + Interpretation Summary 1) Mildly-moderately enlarged left ventricle with severely reduced systolic functoin (EF 20-25%). 2) The right ventricle is normal in size and function. 3) The left atrium is moderately dilated. 4) There is mild to moderate mitral regurgitation. 5) Compared to the Echo done 09/08/2021, no significant change. Procedure: A two-dimensional transthoracic echocardiogram with color flow and Doppler was performed. The study quality was technically adequate. Comparison is made with the echocardiogram of 09/08/2021. The patient was in sinus bradycardia with heart rates between 43-51 bpm during the exam. Left Ventricle: The left ventricle is mild-moderately dilated. There is normal left ventricular wall thickness. The ejection fraction is estimated to be 20-25%. There is severe global hypokinesis of the left ventricle. Right Ventricle: The right ventricle is normal in size and function. Atria: The left atrium is moderately dilated. Right atrial size is normal. There is no Doppler evidence for an interatrial shunt. Mitral Valve: There is a flat closure plane of the the mitral valve leaflets. The mitral valve leaflets appear mildly thickened, but open well. There is mild to moderate mitral regurgitation. Aortic Valve: The aortic valve is trileaflet. The aortic valve opens well. There is no aortic valve stenosis. No aortic regurgitation is present. Tricuspid Valve: The tricuspid valve is normal in structure and function. There is trace tricuspid regurgitation. Pulmonary artery pressures cannot be estimated because of the lack of a measurable TR jet velocity. Pulmonic Valve: The pulmonic valve leaflets are thin and pliable; valve motion is normal. There is trace pulmonic regurgitation. Great Vessels: The aortic root is normal size. The dimensions of the ascending aorta are normal. The IVC is of normal diameter and collapses greater than 50% with a sniff. This suggests a low right atrial pressure of 3 mm Hg. Pericardium/ Pleura There is no pericardial effusion. There is no pleural effusion. MMode/2D Measurements & Calculations LVIDd: 6.0 cm LVOT diam: 2.0 cm LVIDs: 5.4 cm Ao root diam: 2.8 cm FS: 9.8 % asc Aorta Diam: 3.0 cm EPSS: 2.0 cm Ao Arch Diam (Prox Trans): 2.6 cm IVSd: 0.67 cm LVPWd: 0.58 cm LV ortiz. diameter/BSA (cm/m^2): 3.7 LV sys. diameter/BSA (cm/m^2): 3.3 LA A2 area: 27.0 cm2 RA long axis: 4.1 cm LA A4 area: 23.7 cm2 RA area: 9.3 cm2 LA length (vol): 5.6 cm RA vol: 17.7 ml LA vol: 96.7 ml RA : 10.9 ml/m2 LA vol index: 59.2 ml/m2 IVC diam: 0.77 cm RVD1 (basal): 2.9 cm RVD2 (mid): 2.4 cm TAPSE: 2.0 cm Doppler Measurements & Calculations Ao V2 max: 113.1 cm/sec LVOT Max Kamari: 78.7 cm/sec Ao V2 mean: 77.1 cm/sec LV V1 max P.5 mmHg Ao max P.1 mmHg LV V1 VTI: 19.8 cm Ao mean P.7 mmHg KEVIN(I,D): 2.4 cm2 Ao V2 VTI: 25.2 cm KEVIN(V,D): 2.1 cm2 sev ratio: 0.79 KEVIN indexed to BSA (cm^2/m^2): 1.4 MV E max kamari: 69.6 cm/sec PA V2 max: 70.0 cm/sec MV A max kamari: 33.9 cm/sec PA V2 mean: 48.2 cm/sec MV E/A: 2.1 PA mean P.1 mmHg Med Peak E' Kamari: 3.7 cm/sec PA pr(Accel): -8.3 mmHg E/E' med: 18.9 Lat Peak E' Kamari: 4.3 cm/sec E/E' lat: 16.3 E/e' average: 17.6 MV dec time: 0.20 sec MR ERO: 0.10 cm2 MR PISA: 1.5 cm2 SV(LVOT): 59.5 ml MR flow rate: 55.0 cm3/sec MR PISA radius: 0.49 cm Reading Physician:11:43 AM
== END ==
PROVIDERS: PCP Nurse Practitioner Family; Referring Provider Internal Medicine Cardiovascular Disease; Visit Provider Internal Medicine Cardiovascular Disease
DX: I34.0 Nonrheumatic mitral (valve) insufficiency (principal); I50.22 Chronic systolic (congestive) heart failure
CPT/HCPCS: 93306

== ENCOUNTER → 2023-05-13 07:02 | Outpatient (CLI) | payer MEDICARE, SELFPAY ==
[2021-09-17 11:58] VITALS: BMI 26.2
[2023-05-13 07:58] LABS: Add Manual Diff / Slide Review NO; Basophils Absolute Auto 100 /uL (0-100); Basophils Percent Auto 2.5 % (0-2); Eosinophils Absolute Auto 100 /uL (0-450); Hematocrit 39.7 % (36-46); Hemoglobin 13.3 g/dL (12.0-16.0); Lymphocytes Absolute Auto 800 /uL (1100-4500); Lymphocytes Percent Auto 28.5 % (25-40); Mean Corpuscular HGB Conc 33.6 % (30-36); Mean Corpuscular Hemoglobin 30.3 PG (26-34); Mean Corpuscular Volume 90.2 fL (80-100); Monocytes Absolute Auto 500 /uL (0-900); Monocytes Percent Auto 17.7 % (3-14); Neutrophils Absolute Auto 1400 /uL (1500-7000); Neutrophils Percent Auto 47.3 % (50-75); Platelet Count 132 X10^3/uL (150-400); White Blood Cell Count 2.9 X10^3/uL (4.5-11.0)
[2023-05-13 08:14] LABS: BUN Creatinine Ratio 27.3 (6-22); Blood Urea Nitrogen 18 mg/dL (7-17); Calcium 8.9 mg/dL (8.4-10.2); Carbon Dioxide 26 mmol/L (22-32); Chloride 107 mmol/L (98-107); Estimated Glomerular Filt Rate > 60 mL/min (>60); Glucose 102 mg/dL (80-110); HEMOLYSIS < 15 (0-50); Potassium 4.2 mmol/L (3.4-5.1); Sodium 140 mmol/L (137-145)
== END ==
PROVIDERS: PCP Nurse Practitioner Family; Referring Provider Internal Medicine Cardiovascular Disease; Visit Provider Internal Medicine Cardiovascular Disease
DX: I50.22 Chronic systolic (congestive) heart failure (principal); Z79.01 Long term (current) use of anticoagulants
CPT/HCPCS: 36415; 80048; 85025